=== PATIENT | female | born 1950 | race Caucasian/White ===

== ENCOUNTER → 2017-09-05 | Outpatient (CLI) | payer MEDICARE, OTHER ==
[~2017-09-05] MED LIST: ACET325 PO; ACIDOPHILUS1 EAC2 PO; ALBIPROI INH; ALBU90OI6 INH; AMIT10 PO; AMOCLA875 PO; ATOR20 PO; AUGMENTIN; AZIT250 PO; BELPHEER PO; BENZ100A PO; CEPH500 PO; CHOL10002 PO; CIPR500 PO; CLOP75 PO; CYCL10 PO; Cleocin HCl300 MG PO; Cymbalta30 MG PO; DEXL60CA3 PO; DIAZ5; DIAZ5 PO; DULO30 PO; ESTRADIOL VALERATE; EZET10 PO; FLUT.05NI; FOLGARD TABLET1 EACH PO; GABA300 PO; GUAI600T33 PO; HYDCHLSU PO; HYOS.125 SL; IBUP800 PO; LANS30EC PO; LEVFLO250 PO; LEVO750 PO; LIDO5TP TOP; LISI5 PO; METO25ER PO; METR500 PO; NORT10 PO; OMEGA RED PO; ONDA4 PO; ONDA4ODT MM; ONDA8 PO; OXYACE10; OXYACE5T PO; OXYACE7.5T PO; OXYC10ER PO; OXYC15ER PO; OXYC1TAB11; OXYC1TAB11 PO; OXYC5 PO; PERCOCET PO; PROM25; PROM25 PO; Percocet 10-321 EACH PO; ROSU5 PO; SERT25 PO; SIMV10 PO; SUCR1 PO; SUMA25 PO; SUMA5NI; TESTOSTERONE; UBID100 PO; Vitamin D2000 UNIT PO; Vitamin D400 UNI1 PO; [UNRECOGNIZED DRUG - OTHER]
[2017-09-05 09:48] LABS: Source, Urine Voided
[2017-09-05 11:58] LABS: Bilirubin, Urine Neg (Neg); Blood, Urine Neg (Neg); Glucose Qualitative, Urine Neg (Neg); Ketones, Urine Neg (Neg); Leukocyte Esterase, Urine Neg (Neg); Nitrite, Urine Neg (Neg); Protein, Urine Neg (Neg); Urobilinogen, Urine NORM (Normal)
[2017-09-05 12:09] LABS: Appearance, Urine Clear (Clear); Color, Urine Yellow (P-Yellow)
== END | disposition home or self-care (01) ==
LOC: OLS 09:44
PROVIDERS: Internal Medicine
DX: R30.0 Dysuria (principal)
CPT/HCPCS: 81003

== ENCOUNTER 2017-12-26 15:38 | Emergency (ER) | payer MEDICARE, OTHER ==
[~2017-12-26] VITALS: Ht 160 cm; Wt 54.4 kg
[~2017-12-26 15:38] MED LIST changes: -AZIT250 PO; -BENZ100A PO
[2017-12-26 17:46] LABS: BASOPHILS ABSOLUTE AUTO 0.03 K/mm3 (0.00-0.23); BASOPHILS PERCENT AUTO 0 % (0-2); EOSINOPHILS ABSOLUTE AUTO 0.06 K/mm3 (0.00-0.68); EOSINOPHILS PERCENT AUTO 0 % (0-6); Hematocrit 38.7 % (33.0-51.0); Hemoglobin 12.6 g/dL (11.5-16.0); IMMATURE GRAN ABSOLUTE AUTO 0.08 K/mm3 (0.00-0.10); IMMATURE GRAN PERCENT AUTO 1 % (0-1); LYMPHOCYTES ABSOLUTE AUTO 1.46 K/mm3 (0.84-5.20); LYMPHOCYTES PERCENT AUTO 11 % (21-46); MONOCYTES PERCENT AUTO 6 % (4-13); Mean Corpuscular HGB 31.1 pg (26.0-34.0); Mean Corpuscular HGB Conc 32.6 g/dL (31.5-36.5); Mean Corpuscular Volume 96 fL (80-100); Mean Platelet Volume 9.6 fL (9.1-12.4); NEUTROPHILS ABSOLUTE AUTO 11.14 K/mm3 (1.96-9.15); NEUTROPHILS PERCENT AUTO 82 % (41-73); Platelet Count 306 K/mm3 (150-400); RDW Coefficient Variation 13.7 % (11.7-14.2); RDW Standard Deviation 48.8 fL (35.1-46.3); Red Blood Cell Count 4.05 M/mm3 (3.80-5.20); White Blood Cell Count 13.57 K/mm3 (4.00-11.30)
[2017-12-26 18:06] LABS: Anion Gap 10 mmol/L (6-16); Blood Urea Nitrogen 7 mg/dL (8-24); Bun/Creatinine Ratio 14.8 (12.0-20.0); CO2, Blood 26 mmol/L (21-32); Calcium, Blood 8.8 mg/dL (8.5-10.1); Chloride, Blood 97 mmol/L (98-108); Creatinine, Blood 0.47 mg/dL (0.40-1.00); Glomerular Filtration Rate >60 (60-); Glucose, Blood 112 mg/dL (70-99); Potassium, Blood 4.2 mmol/L (3.5-5.5); Sodium, Blood 133 mmol/L (136-145)
[2017-12-26] MEDS ORDERED: BENZ100A PO (18:29)
[2017-12-26] MEDS ORDERED: AZIT250 PO (18:29)
== END 2017-12-26 18:36 | disposition home or self-care (01) ==
LOC: ER 15:38
PROVIDERS: Physician Assistant
DX: J44.1 Chronic obstructive pulmonary disease with (acute) exacerbation (principal); J32.9 Chronic sinusitis, unspecified; Z88.6 Allergy status to analgesic agent; Z88.8 Allergy status to other drugs, medicaments and biological substances; Z88.1 Allergy status to other antibiotic agents; Z88.5 Allergy status to narcotic agent; Z79.899 Other long term (current) drug therapy; Z79.2 Long term (current) use of antibiotics; F41.9 Anxiety disorder, unspecified; F17.210 Nicotine dependence, cigarettes, uncomplicated
CPT/HCPCS: 36415; 71046; 80048; 85025; 99283

== ENCOUNTER → 2020-01-06 | Outpatient (CLI) | payer MEDICARE, OTHER ==
[~2020-01-06] MED LIST changes: +ALBU90OI INH; +AZIT250 PO; +BENZ100A PO; +CLOBETASOL PRO0.5 GM TOP; +Flonase 0.05% N16 GM; +LETR2.5 PO; +LIDO700A20 TOP; +METO50 PO; +Ondansetron Odt8 MG PO; +Sudogest30 MG PO
[2020-01-06 10:10] LABS: Source, Urine Clean Catch
[2020-01-06 12:14] LABS: Bilirubin, Urine Neg (Neg); Blood, Urine Neg (Neg); Glucose Qualitative, Urine Neg (Neg); Ketones, Urine Neg (Neg); Leukocyte Esterase, Urine Neg (Neg); Nitrite, Urine Neg (Neg); Protein, Urine Neg (Neg); Urobilinogen, Urine 1+ (Normal)
[2020-01-06 12:17] LABS: Appearance, Urine Clear (Clear); Color, Urine Yellow (P-Yellow)
== END | disposition home or self-care (01) ==
LOC: LAB SHORT 10:07 → LAB 10:07
PROVIDERS: Internal Medicine
DX: R30.0 Dysuria (principal)
CPT/HCPCS: 81003

== ENCOUNTER 2020-04-20 15:39 | Emergency (ER) | payer MEDICARE, OTHER ==
[~2020-04-20] VITALS: Ht 160 cm; Wt 52.2 kg
[2020-04-20 16:10] LABS: BASOPHILS ABSOLUTE AUTO 0.05 K/mm3 (0.00-0.23); BASOPHILS PERCENT AUTO 1 % (0-2); EOSINOPHILS ABSOLUTE AUTO 0.13 K/mm3 (0.00-0.68); EOSINOPHILS PERCENT AUTO 2 % (0-6); Hematocrit 41.2 % (33.0-51.0); Hemoglobin 13.6 g/dL (11.5-16.0); IMMATURE GRAN ABSOLUTE AUTO 0.02 K/mm3 (0.00-0.10); IMMATURE GRAN PERCENT AUTO 0 % (0-1); LYMPHOCYTES ABSOLUTE AUTO 1.03 K/mm3 (0.84-5.20); LYMPHOCYTES PERCENT AUTO 19 % (21-46); MONOCYTES ABSOLUTE AUTO 0.18 K/mm3 (0.16-1.47); MONOCYTES PERCENT AUTO 3 % (4-13); Mean Corpuscular HGB 34.4 pg (26.0-34.0); Mean Corpuscular Volume 104 fL (80-100); Mean Platelet Volume 10.4 fL (9.1-12.4); NEUTROPHILS ABSOLUTE AUTO 4.17 K/mm3 (1.96-9.15); NEUTROPHILS PERCENT AUTO 75 % (41-73); NRBC ABSOLUTE 0.03 K/mm3 (0.00-0.02); NRBC Auto 0.5 /100 WBC (0.0-0.2); Platelet Count 218 K/mm3 (150-400); RDW Coefficient Variation 18.4 % (11.7-14.2); RDW Standard Deviation 70.9 fL (35.1-46.3); Red Blood Cell Count 3.95 M/mm3 (3.80-5.20); White Blood Cell Count 5.58 K/mm3 (4.00-11.30)
[2020-04-20 16:30] LABS: Alanine Aminotransfer (ALT/SGP 29 U/L (12-78); Albumin, Blood 2.8 g/dL (3.4-5.0); Albumin/Globulin Ratio 0.7 (0.8-1.8); Alk Phos 199 U/L (50-136); Anion Gap 10 mmol/L (6-16); Aspartate Aminotrans (AST/SGOT 54 U/L (12-37); Bilirubin, Total 0.5 mg/dL (0.1-1.0); Blood Urea Nitrogen 7 mg/dL (8-24); Bun/Creatinine Ratio 11.2 (12.0-20.0); CO2, Blood 23 mmol/L (21-32); Calcium, Blood 9.1 mg/dL (8.5-10.1); Chloride, Blood 105 mmol/L (98-108); Creatinine, Blood 0.63 mg/dL (0.40-1.00); Globulin, Blood 3.9 g/dL (2.2-4.0); Glomerular Filtration Rate >60 (60-); Glucose, Blood 121 mg/dL (70-99); Potassium, Blood 3.3 mmol/L (3.5-5.5); Sodium, Blood 138 mmol/L (136-145); Total Protein, Blood 6.7 g/dL (6.4-8.2)
[2020-04-20 19:59] LABS: Source, Urine Clean Catch
[2020-04-20 20:02] LABS: Appearance, Urine Clear (Clear); Bilirubin, Urine Neg (Neg); Blood, Urine Neg (Neg); Color, Urine Yellow (P-Yellow); Glucose Qualitative, Urine Neg (Neg); Ketones, Urine Neg (Neg); Leukocyte Esterase, Urine Neg (Neg); Nitrite, Urine Neg (Neg); Protein, Urine 1+ (Neg); Urobilinogen, Urine NORM (Normal); pH, Urine 6.5 (5.0-8.0)
[2020-04-20] MEDS ORDERED: AMLO5 PO (20:20)
[2020-04-20] MEDS ORDERED: METTREX2.5 (20:20)
[2020-04-20] MEDS ORDERED: FOLI1 PO (20:20)
[2020-04-20] MEDS ORDERED: LANS30EC PO (20:21)
[2020-04-20] MEDS ORDERED: Vitamin D2000 UNIT PO (20:22)
[2020-04-20] MEDS ORDERED: FLUT.05NI (20:22)
[2020-04-20] MEDS ORDERED: CALCIUM 600 +1 EA11 PO (20:23)
[2020-04-20] MEDS ORDERED: CLOP75 PO (20:23)
[2020-04-20] MEDS ORDERED: PERCOCET 10-321 EAC2 PO (20:23)
[2020-04-20] MEDS ORDERED: Protonix40 MG PO (20:39)
[2020-04-20] MEDS ORDERED: ONDA4ODT MM (20:39)
== END 2020-04-20 20:52 | disposition home or self-care (01) ==
LOC: ER 15:39
PROVIDERS: Physician Assistant
DX: K29.70 Gastritis, unspecified, without bleeding (principal); K21.9 Gastro-esophageal reflux disease without esophagitis; F41.9 Anxiety disorder, unspecified; F17.200 Nicotine dependence, unspecified, uncomplicated; Z88.6 Allergy status to analgesic agent; Z88.8 Allergy status to other drugs, medicaments and biological substances; Z88.1 Allergy status to other antibiotic agents; Z88.4 Allergy status to anesthetic agent; Z88.5 Allergy status to narcotic agent; Z79.02 Long term (current) use of antithrombotics/antiplatelets; Z79.899 Other long term (current) drug therapy
CPT/HCPCS: 36415; 71260; 74177; 80053; 83690; 83735; 84484; 85025; 93005; 93010; 96361; 96374-59; 99284-25; A9270-GY; J2405; J7030; Q9967

== ENCOUNTER 2020-05-14 12:59 | Emergency (ER) | payer MEDICARE, OTHER ==
[~2020-05-14] VITALS: Ht 160 cm; Wt 51.3 kg
[~2020-05-14 12:59] MED LIST changes: +AMLO5 PO; +CALCIUM 600 +1 EA11 PO; +FOLI1 PO; +METTREX2.5; +Protonix40 MG PO
[2020-05-14 14:14] LABS: BASOPHILS ABSOLUTE AUTO 0.03 K/mm3 (0.00-0.23); BASOPHILS PERCENT AUTO 1 % (0-2); EOSINOPHILS ABSOLUTE AUTO 0.11 K/mm3 (0.00-0.68); EOSINOPHILS PERCENT AUTO 2 % (0-6); Hematocrit 39.9 % (33.0-51.0); IMMATURE GRAN ABSOLUTE AUTO 0.02 K/mm3 (0.00-0.10); IMMATURE GRAN PERCENT AUTO 0 % (0-1); LYMPHOCYTES PERCENT AUTO 28 % (21-46); MONOCYTES PERCENT AUTO 6 % (4-13); Mean Corpuscular HGB 35.1 pg (26.0-34.0); Mean Corpuscular HGB Conc 32.6 g/dL (31.5-36.5); Mean Corpuscular Volume 108 fL (80-100); Mean Platelet Volume 12.5 fL (9.1-12.4); NEUTROPHILS ABSOLUTE AUTO 3.14 K/mm3 (1.96-9.15); NEUTROPHILS PERCENT AUTO 63 % (41-73); NRBC ABSOLUTE 0.02 K/mm3 (0.00-0.02); NRBC Auto 0.4 /100 WBC (0.0-0.2); Platelet Count 103 K/mm3 (150-400); RDW Coefficient Variation 19.5 % (11.7-14.2)
[2020-05-14 14:44] LABS: Alanine Aminotransfer (ALT/SGP 52 U/L (12-78); Albumin, Blood 2.6 g/dL (3.4-5.0); Albumin/Globulin Ratio 0.7 (0.8-1.8); Alk Phos 226 U/L (50-136); Anion Gap 14 mmol/L (6-16); Aspartate Aminotrans (AST/SGOT 103 U/L (12-37); Bilirubin, Total 0.9 mg/dL (0.1-1.0); Blood Urea Nitrogen 7 mg/dL (8-24); Bun/Creatinine Ratio 12.5 (12.0-20.0); CO2, Blood 21 mmol/L (21-32); Calcium, Blood 8.9 mg/dL (8.5-10.1); Chloride, Blood 105 mmol/L (98-108); Creatinine, Blood 0.56 mg/dL (0.40-1.00); Globulin, Blood 3.6 g/dL (2.2-4.0); Glomerular Filtration Rate >60 (60-); Glucose, Blood 129 mg/dL (70-99); Potassium, Blood 3.1 mmol/L (3.5-5.5); Sodium, Blood 140 mmol/L (136-145); Total Protein, Blood 6.2 g/dL (6.4-8.2)
[2020-05-14 14:56] LABS: Source, Urine Clean Catch
[2020-05-14 15:00] LABS: Appearance, Urine Cloudy (Clear); Blood, Urine 1+ (Neg); Color, Urine Amber (P-Yellow); Glucose Qualitative, Urine Neg (Neg); Ketones, Urine 1+ (Neg); Leukocyte Esterase, Urine 2+ (Neg); Nitrite, Urine Neg (Neg); Protein, Urine 2+ (Neg); Urobilinogen, Urine 2+ (Normal)
[2020-05-14 15:12] LABS: Bilirubin, Urine 1+ (Neg)
[2020-05-14 15:14] LABS: Bacteria Many /hpf; Squamous Epithelial Cells Mod /hpf (Few)
[2020-05-14] MEDS ORDERED: DIAZ5 PO (16:47)
[2020-05-14] MEDS ORDERED: PROM25 PO (16:48)
[2020-05-14] MEDS ORDERED: FAMO20 PO (16:48)
[2020-05-14] MEDS ORDERED: DOCU100 PO (16:48)
[2020-05-14] MEDS ORDERED: NYSTATIN100000 UN1 SS (16:50)
[2020-05-14] MEDS ORDERED: KEFLEX500 MG PO (17:50)
[2020-05-14] MEDS ORDERED: ONDA4 PO (17:50)
== END 2020-05-14 18:16 | disposition home or self-care (01) ==
LOC: ER 12:59
PROVIDERS: Physician Assistant
DX: N39.0 Urinary tract infection, site not specified (principal); F41.9 Anxiety disorder, unspecified; K21.9 Gastro-esophageal reflux disease without esophagitis; I10 Essential (primary) hypertension; F17.200 Nicotine dependence, unspecified, uncomplicated; Z88.6 Allergy status to analgesic agent; Z88.8 Allergy status to other drugs, medicaments and biological substances; Z88.4 Allergy status to anesthetic agent; Z88.1 Allergy status to other antibiotic agents; Z88.5 Allergy status to narcotic agent; Z79.02 Long term (current) use of antithrombotics/antiplatelets; Z79.899 Other long term (current) drug therapy
CPT/HCPCS: 36415; 80053; 81001; 83690; 85025; 87077; 87086; 87186; 96365; 96375; 99284-25; J0696; J2405; J7030

== ENCOUNTER 2020-05-20 14:08 | Emergency (ER) | payer MEDICARE, OTHER ==
[~2020-05-20] VITALS: Ht 160 cm; Wt 51.3 kg
[~2020-05-20 14:08] MED LIST changes: +DOCU100 PO; +FAMO20 PO; +KEFLEX500 MG PO; +NYSTATIN100000 UN1 SS
[2020-05-20 15:16] LABS: BASOPHILS ABSOLUTE AUTO 0.03 K/mm3 (0.00-0.23); BASOPHILS PERCENT AUTO 1 % (0-2); EOSINOPHILS ABSOLUTE AUTO 0.09 K/mm3 (0.00-0.68); EOSINOPHILS PERCENT AUTO 2 % (0-6); Hematocrit 31.6 % (33.0-51.0); Hemoglobin 10.5 g/dL (11.5-16.0); IMMATURE GRAN ABSOLUTE AUTO 0.03 K/mm3 (0.00-0.10); IMMATURE GRAN PERCENT AUTO 1 % (0-1); LYMPHOCYTES ABSOLUTE AUTO 1.34 K/mm3 (0.84-5.20); LYMPHOCYTES PERCENT AUTO 26 % (21-46); MONOCYTES ABSOLUTE AUTO 0.39 K/mm3 (0.16-1.47); MONOCYTES PERCENT AUTO 8 % (4-13); Mean Corpuscular HGB 36.6 pg (26.0-34.0); Mean Corpuscular HGB Conc 33.2 g/dL (31.5-36.5); Mean Corpuscular Volume 110 fL (80-100); Mean Platelet Volume 12.3 fL (9.1-12.4); NEUTROPHILS ABSOLUTE AUTO 3.34 K/mm3 (1.96-9.15); NEUTROPHILS PERCENT AUTO 64 % (41-73); NRBC ABSOLUTE 0.05 K/mm3 (0.00-0.02); Platelet Count 70 K/mm3 (150-400); RDW Coefficient Variation 18.6 % (11.7-14.2); RDW Standard Deviation 75.7 fL (35.1-46.3); Red Blood Cell Count 2.87 M/mm3 (3.80-5.20); White Blood Cell Count 5.22 K/mm3 (4.00-11.30)
[2020-05-20 15:28] LABS: Source, Urine Clean Catch
[2020-05-20 15:53] LABS: Appearance, Urine Clear (Clear); Bilirubin, Urine Neg (Neg); Blood, Urine Neg (Neg); Color, Urine Yellow (P-Yellow); Glucose Qualitative, Urine Neg (Neg); Ketones, Urine Neg (Neg); Leukocyte Esterase, Urine Neg (Neg); Nitrite, Urine Neg (Neg); Protein, Urine 1+ (Neg); Specific Gravity, Urine 1.015 (1.003-1.022); Urobilinogen, Urine NORM (Normal)
[2020-05-20 16:03] LABS: Alanine Aminotransfer (ALT/SGP 42 U/L (12-78); Albumin, Blood 2.1 g/dL (3.4-5.0); Albumin/Globulin Ratio 0.8 (0.8-1.8); Alk Phos 149 U/L (50-136); Anion Gap 11 mmol/L (6-16); Aspartate Aminotrans (AST/SGOT 70 U/L (12-37); Bilirubin, Total 0.7 mg/dL (0.1-1.0); Blood Urea Nitrogen 6 mg/dL (8-24); Bun/Creatinine Ratio 13.2 (12.0-20.0); CO2, Blood 25 mmol/L (21-32); Calcium, Blood 8.1 mg/dL (8.5-10.1); Chloride, Blood 108 mmol/L (98-108); Creatinine, Blood 0.46 mg/dL (0.40-1.00); Globulin, Blood 2.8 g/dL (2.2-4.0); Glomerular Filtration Rate >60 (60-); Glucose, Blood 94 mg/dL (70-99); Potassium, Blood 2.9 mmol/L (3.5-5.5); Sodium, Blood 144 mmol/L (136-145); Total Protein, Blood 4.9 g/dL (6.4-8.2)
[2020-05-20] MEDS ORDERED: POTA10T PO (17:40)
== END 2020-05-20 19:28 | disposition home or self-care (01) ==
LOC: ER 14:08
PROVIDERS: Emergency Medicine
DX: K44.9 Diaphragmatic hernia without obstruction or gangrene (principal); E87.6 Hypokalemia; E86.0 Dehydration; F41.9 Anxiety disorder, unspecified; K21.9 Gastro-esophageal reflux disease without esophagitis; J44.9 Chronic obstructive pulmonary disease, unspecified; Z88.5 Allergy status to narcotic agent; Z88.6 Allergy status to analgesic agent; Z88.4 Allergy status to anesthetic agent; Z88.8 Allergy status to other drugs, medicaments and biological substances; Z79.899 Other long term (current) drug therapy; F17.210 Nicotine dependence, cigarettes, uncomplicated
CPT/HCPCS: 74177; 80053; 83690; 85025; 96361; 96365-59; 96366; 96375-59; 99285-25; J2765; J3010; J3480; J7030; Q9967

== ENCOUNTER → 2020-06-08 | Outpatient (CLI) | payer MEDICARE, OTHER ==
[~2020-06-08] MED LIST changes: -AMLO5 PO; +AMLODIPINE BES2.5 MG PO; +DILAUDID 00.5 MG/0.2 PO; +Klor-Con 1010 MEQ PO; +LANSOPRAZOLE30 MG PO; +LORAZEPAM0.5 MG PO; +METHOTREXA25 MG/1 M8; +NIFE30ER PO; +ONDA4ODT SL; +PLAVIX75 MG PO; +POTA10T PO; +RISPERIDONE0.25 MG PO
[2020-06-08 12:04] LABS: BASOPHILS ABSOLUTE AUTO 0.01 K/mm3 (0.00-0.23); BASOPHILS PERCENT AUTO 0 % (0-2); EOSINOPHILS ABSOLUTE AUTO 0.07 K/mm3 (0.00-0.68); EOSINOPHILS PERCENT AUTO 2 % (0-6); Hematocrit 30.5 % (33.0-51.0); Hemoglobin 9.9 g/dL (11.5-16.0); IMMATURE GRAN ABSOLUTE AUTO 0.02 K/mm3 (0.00-0.10); IMMATURE GRAN PERCENT AUTO 1 % (0-1); LYMPHOCYTES ABSOLUTE AUTO 1.45 K/mm3 (0.84-5.20); LYMPHOCYTES PERCENT AUTO 34 % (21-46); MONOCYTES ABSOLUTE AUTO 0.21 K/mm3 (0.16-1.47); MONOCYTES PERCENT AUTO 5 % (4-13); Mean Corpuscular HGB 36.5 pg (26.0-34.0); Mean Corpuscular HGB Conc 32.5 g/dL (31.5-36.5); Mean Corpuscular Volume 113 fL (80-100); Mean Platelet Volume 11.5 fL (9.1-12.4); NEUTROPHILS ABSOLUTE AUTO 2.45 K/mm3 (1.96-9.15); NEUTROPHILS PERCENT AUTO 58 % (41-73); Platelet Count 148 K/mm3 (150-400); RDW Coefficient Variation 18.8 % (11.7-14.2); Red Blood Cell Count 2.71 M/mm3 (3.80-5.20); White Blood Cell Count 4.21 K/mm3 (4.00-11.30)
[2020-06-08 12:17] LABS: Anion Gap 10 mmol/L (6-16); Blood Urea Nitrogen 8 mg/dL (8-24); Bun/Creatinine Ratio 14.7 (12.0-20.0); CO2, Blood 23 mmol/L (21-32); Chloride, Blood 107 mmol/L (98-108); Creatinine, Blood 0.54 mg/dL (0.40-1.00); Glomerular Filtration Rate >60 (60-); Glucose, Blood 125 mg/dL (70-99); Potassium, Blood 3.4 mmol/L (3.5-5.5); Sodium, Blood 140 mmol/L (136-145)
== END ==
LOC: LAB SHORT 11:20 → LAB 11:20
PROVIDERS: Internal Medicine
DX: L89.102 Pressure ulcer of unspecified part of back, stage 2 (principal); R13.10 Dysphagia, unspecified
CPT/HCPCS: 80048; 85025

== ENCOUNTER 2020-06-21 15:47 | Inpatient (IN) | payer MEDICARE ==
[~2020-06-21] VITALS: Ht 160 cm; Wt 56.8 kg
[~2020-06-21 15:47] MED LIST changes: -AMLODIPINE BES2.5 MG PO; -DILAUDID 00.5 MG/0.2 PO; -Klor-Con 1010 MEQ PO; -LANSOPRAZOLE30 MG PO; -LORAZEPAM0.5 MG PO; -METHOTREXA25 MG/1 M8; -NIFE30ER PO; -NYSTATIN100000 UN1 SS; -ONDA4ODT SL; -PLAVIX75 MG PO; -RISPERIDONE0.25 MG PO
[2020-06-21 16:46] LABS: BASOPHILS ABSOLUTE AUTO 0.01 K/mm3 (0.00-0.23); BASOPHILS PERCENT AUTO 0 % (0-2); EOSINOPHILS ABSOLUTE AUTO 0.01 K/mm3 (0.00-0.68); EOSINOPHILS PERCENT AUTO 0 % (0-6); Hematocrit 29.5 % (33.0-51.0); Hemoglobin 9.7 g/dL (11.5-16.0); IMMATURE GRAN ABSOLUTE AUTO 0.04 K/mm3 (0.00-0.10); IMMATURE GRAN PERCENT AUTO 1 % (0-1); LYMPHOCYTES ABSOLUTE AUTO 0.93 K/mm3 (0.84-5.20); LYMPHOCYTES PERCENT AUTO 14 % (21-46); MONOCYTES ABSOLUTE AUTO 0.64 K/mm3 (0.16-1.47); MONOCYTES PERCENT AUTO 10 % (4-13); Mean Corpuscular HGB 37.3 pg (26.0-34.0); Mean Corpuscular HGB Conc 32.9 g/dL (31.5-36.5); Mean Corpuscular Volume 114 fL (80-100); Mean Platelet Volume 11.3 fL (9.1-12.4); NEUTROPHILS ABSOLUTE AUTO 4.82 K/mm3 (1.96-9.15); NEUTROPHILS PERCENT AUTO 75 % (41-73); NRBC ABSOLUTE 0.03 K/mm3 (0.00-0.02); NRBC Auto 0.5 /100 WBC (0.0-0.2); Platelet Count 169 K/mm3 (150-400); RDW Coefficient Variation 17.3 % (11.7-14.2); RDW Standard Deviation 72.1 fL (35.1-46.3); White Blood Cell Count 6.45 K/mm3 (4.00-11.30)
[2020-06-21 16:56] LABS: Alanine Aminotransfer (ALT/SGP 65 U/L (12-78); Albumin, Blood 2.3 g/dL (3.4-5.0); Albumin/Globulin Ratio 0.7 (0.8-1.8); Alk Phos 150 U/L (50-136); Anion Gap 9 mmol/L (6-16); Aspartate Aminotrans (AST/SGOT 141 U/L (12-37); Bilirubin, Total 0.9 mg/dL (0.1-1.0); Blood Urea Nitrogen 8 mg/dL (8-24); Bun/Creatinine Ratio 22.9 (12.0-20.0); CO2, Blood 25 mmol/L (21-32); Calcium, Blood 8.4 mg/dL (8.5-10.1); Chloride, Blood 109 mmol/L (98-108); Creatinine, Blood 0.35 mg/dL (0.40-1.00); Globulin, Blood 3.2 g/dL (2.2-4.0); Glomerular Filtration Rate >60 (60-); Glucose, Blood 132 mg/dL (70-99); Potassium, Blood 3.4 mmol/L (3.5-5.5); Sodium, Blood 143 mmol/L (136-145); Total Protein, Blood 5.5 g/dL (6.4-8.2)
[2020-06-21 17:03] LABS: Source, Urine Catheter
[2020-06-21 17:12] LABS: Appearance, Urine Clear (Clear); Blood, Urine 1+ (Neg); Color, Urine Amber (P-Yellow); Glucose Qualitative, Urine Neg (Neg); Ketones, Urine 4+ (Neg); Leukocyte Esterase, Urine 1+ (Neg); Nitrite, Urine Neg (Neg); Protein, Urine 1+ (Neg); Urobilinogen, Urine 2+ (Normal)
[2020-06-21 17:19] LABS: Bilirubin, Urine 1+ (Neg)
[2020-06-21 17:21] LABS: Bacteria Mod /hpf; White Blood Cells, Urine 0-2 /hpf (0-5)
[2020-06-21 17:22] LABS: Mucus Light (0-Heavy); Squamous Epithelial Cells Mod /hpf (Few)
[2020-06-21 18:00] LABS: Magnesium, Blood 1.7 mg/dL (1.6-2.4)
[2020-06-21] MEDS ORDERED: AMLODIPINE BES2.5 MG PO (20:44)
[2020-06-21] MEDS ORDERED: RISPERIDONE0.25 MG PO (20:46)
[2020-06-21] MEDS ORDERED: FOLI1 PO (20:47)
[2020-06-21] MEDS ORDERED: METHOTREXA25 MG/1 M8 (20:49)
[2020-06-21] MEDS ORDERED: PLAVIX75 MG PO (20:51)
[2020-06-21] MEDS ORDERED: NIFE30ER PO (20:51)
[2020-06-21] MEDS ORDERED: Percocet 10-321 EACH PO (21:36)
[2020-06-21] MEDS ORDERED: PROM25 PO (21:36)
[2020-06-21] MEDS ORDERED: NYSTATIN100000 UN1 SS (21:37)
[2020-06-21] MEDS ORDERED: LANSOPRAZOLE30 MG PO (21:37)
[2020-06-21] MEDS ORDERED: ONDA4ODT SL (21:38)
[2020-06-21] MEDS ORDERED: Klor-Con 1010 MEQ PO (21:39)
[2020-06-21] MEDS ORDERED: DILAUDID 00.5 MG/0.2 PO (21:39)
[2020-06-21] MEDS ORDERED: LORAZEPAM0.5 MG PO (21:41)
[2020-06-21 21:54] LABS: Percent Saturation 46.5 % (15.0-50.0)
--- NOTE | 2020-06-22 05:40 | NUR ---
RETREAD MOLD OPERATOR SUMMARY ADMITTED PT FROM ED. PT A&OX4, ABLE TO MAKE NEEDS KNOWN. PLEASANT AND COOPERATIVE TO CARE. PT HAS GENERALIZED WEAKNESS, 2 PERSON MAX ASSIST. PT C/O GENERALIZED BODY PAIN, MEDICATED PER EMAR. PT TOLERATED MEDICATIONS ONE PILL AT A TIME. PT ALSO MEDICATED FOR N/V X1 THIS SHIFT. PT HAS A PRESSURE WOUND ON COCCYX AREA. AA IS COVERED WITH MEPILEX. NO C/O CP, SOB. CALM AND RESTED IN BED AT THIS TIME. BED AT LOWEST POSITION. CALL LIGHT WITHIN REACH.
[2020-06-22 05:57] LABS: BASOPHILS PERCENT AUTO 0 % (0-2); EOSINOPHILS ABSOLUTE AUTO 0.02 K/mm3 (0.00-0.68); EOSINOPHILS PERCENT AUTO 0 % (0-6); Hematocrit 30.5 % (33.0-51.0); Hemoglobin 9.8 g/dL (11.5-16.0); IMMATURE GRAN ABSOLUTE AUTO 0.05 K/mm3 (0.00-0.10); IMMATURE GRAN PERCENT AUTO 1 % (0-1); LYMPHOCYTES ABSOLUTE AUTO 1.01 K/mm3 (0.84-5.20); LYMPHOCYTES PERCENT AUTO 11 % (21-46); MONOCYTES ABSOLUTE AUTO 0.67 K/mm3 (0.16-1.47); MONOCYTES PERCENT AUTO 7 % (4-13); Mean Corpuscular HGB 37.1 pg (26.0-34.0); Mean Corpuscular HGB Conc 32.1 g/dL (31.5-36.5); Mean Corpuscular Volume 116 fL (80-100); Mean Platelet Volume 11.2 fL (9.1-12.4); NEUTROPHILS ABSOLUTE AUTO 7.62 K/mm3 (1.96-9.15); NEUTROPHILS PERCENT AUTO 81 % (41-73); NRBC ABSOLUTE 0.02 K/mm3 (0.00-0.02); NRBC Auto 0.2 /100 WBC (0.0-0.2); Platelet Count 159 K/mm3 (150-400); RDW Coefficient Variation 17.5 % (11.7-14.2); RDW Standard Deviation 74.5 fL (35.1-46.3); Red Blood Cell Count 2.64 M/mm3 (3.80-5.20); White Blood Cell Count 9.37 K/mm3 (4.00-11.30)
[2020-06-22 06:31] LABS: Anion Gap 11 mmol/L (6-16); Blood Urea Nitrogen 7 mg/dL (8-24); Bun/Creatinine Ratio 18.9 (12.0-20.0); CO2, Blood 23 mmol/L (21-32); Calcium, Blood 8.2 mg/dL (8.5-10.1); Chloride, Blood 107 mmol/L (98-108); Creatinine, Blood 0.37 mg/dL (0.40-1.00); Glomerular Filtration Rate >60 (60-); Glucose, Blood 131 mg/dL (70-99); Potassium, Blood 3.5 mmol/L (3.5-5.5); Sodium, Blood 141 mmol/L (136-145)
--- NOTE | 2020-06-22 15:46 | NUR ---
Supportive visit this afternoon. Dr Yu just coming out of Pt's room. Reviewed case and discussed plan of care. Plan for ST to evaluate with possible modified barrium. Pt resting in bed and is A&OX3. Pt reports 10/10 pain in her lower back and back of both legs. Pt appears frail and lethargic. Pt denies dyspnea at this time. Engaged in therapeutic listening as Pt reports being unsure if g tube placement is what she wants. Pt is more focused on her pain at this time. Pt agreeable for continued visits. Reviewed home medication list, discussed case with Bedside RN Jaylan, Dr Ibarra and discussed case. Dr Ibarra recently placed order for higher dose of Dilaudid and would like to assess effectiveness of new order before ordering home medication of oxycodone. Palliative Care will F/U for symtpom management and supportive visits.
--- NOTE | 2020-06-22 16:41 | NUR ---
PT IS A/OX3, PLEASANT AND COOPERATIVE, VERY WEAK/LETHARGIC AND DUSKY IN COLOR, PT APPEARS TO BE BREATHING EASILY ON RA AT THIS TIME, THE PT HAS CONTINUOS PAIN ALL OVER PTS SKIN APPEARS MODELING LOOKING, PT WAS SEEN BY THE DIATICAN AND THEN FOR CONSULTAION, PLAN IS TO HAVE BARIUM SWALLOW IN THE AM TO SEE IF THE PATIENT CAN SWALLOW SAFELY, THE PT IS RECIEVING IV CLINIMIX AND LIPIDS AT THIS TIME TO HELP SUSTAIN NUTRITION, PTS HAS BEEN AT THE BEDSIDE T/O THE DAY, CALL LIGHT IN REACH, WILL CONTINUE TO MONITOR AND ASSESS FOR CHANGES
--- NOTE | 2020-06-22 17:58 | NUR ---
Spiritual care note: Aimee appears very ill. She is frail, weak, and tired. Worried spouse at bedside. She admitted she is tired of hurting. Prayer was appreciaited and rapport established. Asked palliative care RN to follow closely. I will remain available.
--- NOTE | 2020-06-23 03:52 | NUR ---
OUTSIDE SALESPERSON SUMMARY PT A/OX3, ABLE TO MAKE NEEDS KNOWN. PLEASANT AND COOPERATIVE TO CARE. PT IS VERY WEAK, 2 PERSON ASSIST, DUSKY IN COLOR. MEDICATED FOR GENERALIZED BODY PAIN PER EMAR. PT ALSO MEDICATED FOR N/V PER EMAR. RESP ARE EVEN AND UNLABORED IN ROOM AIR. NO C/O CP, NO SOB. CONT ON CLINIMIX FOR NUTRITION. BED AT LOWEST POSITION, CALL LIGHT WITHIN REACH. PT CALM AND RESTED IN BED AT THIS TIME. WILL CONT TO MONITOR FOR CHANGES.
[2020-06-23 05:30] LABS: BASOPHILS ABSOLUTE AUTO 0.01 K/mm3 (0.00-0.23); BASOPHILS PERCENT AUTO 0 % (0-2); EOSINOPHILS ABSOLUTE AUTO 0.03 K/mm3 (0.00-0.68); EOSINOPHILS PERCENT AUTO 0 % (0-6); Hematocrit 27.4 % (33.0-51.0); Hemoglobin 8.8 g/dL (11.5-16.0); IMMATURE GRAN ABSOLUTE AUTO 0.06 K/mm3 (0.00-0.10); IMMATURE GRAN PERCENT AUTO 1 % (0-1); LYMPHOCYTES ABSOLUTE AUTO 0.95 K/mm3 (0.84-5.20); LYMPHOCYTES PERCENT AUTO 12 % (21-46); MONOCYTES PERCENT AUTO 9 % (4-13); Mean Corpuscular HGB 36.5 pg (26.0-34.0); Mean Corpuscular HGB Conc 32.1 g/dL (31.5-36.5); Mean Corpuscular Volume 114 fL (80-100); Mean Platelet Volume 11.2 fL (9.1-12.4); NEUTROPHILS ABSOLUTE AUTO 6.43 K/mm3 (1.96-9.15); NEUTROPHILS PERCENT AUTO 79 % (41-73); NRBC ABSOLUTE 0.05 K/mm3 (0.00-0.02); NRBC Auto 0.6 /100 WBC (0.0-0.2); Platelet Count 129 K/mm3 (150-400); RDW Coefficient Variation 16.7 % (11.7-14.2); RDW Standard Deviation 70.1 fL (35.1-46.3); Red Blood Cell Count 2.41 M/mm3 (3.80-5.20); White Blood Cell Count 8.18 K/mm3 (4.00-11.30)
[2020-06-23 06:11] LABS: Albumin, Blood 1.9 g/dL (3.4-5.0); Anion Gap 6 mmol/L (6-16); Blood Urea Nitrogen 15 mg/dL (8-24); Bun/Creatinine Ratio 42.6 (12.0-20.0); CO2, Blood 27 mmol/L (21-32); Calcium, Blood 8.4 mg/dL (8.5-10.1); Chloride, Blood 104 mmol/L (98-108); Creatinine, Blood 0.35 mg/dL (0.40-1.00); Glomerular Filtration Rate >60 (60-); Glucose, Blood 124 mg/dL (70-99); Phosphorus, Blood 2.5 mg/dL (2.5-4.9); Potassium, Blood 3.8 mmol/L (3.5-5.5); Sodium, Blood 137 mmol/L (136-145)
--- NOTE | 2020-06-23 17:51 | NUR ---
PT ORIENTED TO SITUATION AND SELF BUT REMAINS SLEEPY. PT IS MAX ASSIST WITH BED ANGELES WHEN ABLE TO TOLERATE. URIN DARK MARQUES IN COLOR. L/AC RUNNING AND WNL. PT RECEIVED ORAL CARE PER NEW NPO ORDERS AND WOUND DRESSING CHANGED. STAFF WILL CONTINUE TO MONITOR FOR CHANGES.
[2020-06-24 04:52] LABS: BASOPHILS ABSOLUTE AUTO 0.01 K/mm3 (0.00-0.23); BASOPHILS PERCENT AUTO 0 % (0-2); EOSINOPHILS ABSOLUTE AUTO 0.02 K/mm3 (0.00-0.68); EOSINOPHILS PERCENT AUTO 0 % (0-6); Hematocrit 26.8 % (33.0-51.0); Hemoglobin 8.8 g/dL (11.5-16.0); IMMATURE GRAN ABSOLUTE AUTO 0.07 K/mm3 (0.00-0.10); IMMATURE GRAN PERCENT AUTO 1 % (0-1); LYMPHOCYTES ABSOLUTE AUTO 0.93 K/mm3 (0.84-5.20); LYMPHOCYTES PERCENT AUTO 9 % (21-46); MONOCYTES ABSOLUTE AUTO 0.71 K/mm3 (0.16-1.47); MONOCYTES PERCENT AUTO 7 % (4-13); Mean Corpuscular HGB Conc 32.8 g/dL (31.5-36.5); Mean Corpuscular Volume 113 fL (80-100); Mean Platelet Volume 11.7 fL (9.1-12.4); NEUTROPHILS PERCENT AUTO 84 % (41-73); NRBC ABSOLUTE 0.07 K/mm3 (0.00-0.02); NRBC Auto 0.7 /100 WBC (0.0-0.2); Platelet Count 128 K/mm3 (150-400); RDW Coefficient Variation 15.9 % (11.7-14.2); RDW Standard Deviation 65.9 fL (35.1-46.3); Red Blood Cell Count 2.38 M/mm3 (3.80-5.20); White Blood Cell Count 10.64 K/mm3 (4.00-11.30)
[2020-06-24 05:24] LABS: Alanine Aminotransfer (ALT/SGP 31 U/L (12-78); Albumin/Globulin Ratio 0.6 (0.8-1.8); Alk Phos 105 U/L (50-136); Anion Gap 9 mmol/L (6-16); Aspartate Aminotrans (AST/SGOT 27 U/L (12-37); Bilirubin, Total 0.6 mg/dL (0.1-1.0); Blood Urea Nitrogen 17 mg/dL (8-24); CO2, Blood 24 mmol/L (21-32); Calcium, Blood 8.7 mg/dL (8.5-10.1); Chloride, Blood 99 mmol/L (98-108); Creatinine, Blood 0.35 mg/dL (0.40-1.00); Globulin, Blood 3.2 g/dL (2.2-4.0); Glomerular Filtration Rate >60 (60-); Glucose, Blood 120 mg/dL (70-99); Magnesium, Blood 1.9 mg/dL (1.6-2.4); Phosphorus, Blood 2.9 mg/dL (2.5-4.9); Sodium, Blood 132 mmol/L (136-145); Total Protein, Blood 5.2 g/dL (6.4-8.2)
--- NOTE | 2020-06-24 06:33 | NUR ---
SHIFT SUMMARY PT IS A 69 Y/O FEMALE, ADMITTED FOR DYSPHAGIA AND INCREASED WEAKNESS. SHE IS A&O X 2, LETHARGIC, WAKING TO VOICE, OCCASIONALLY CRYING OUT BEFORE FALLING BACK ASLEEP. PT IS ON BEDREST. NPO FOR AN EGD PROCEDURE TODAY. PT C/O GENERALIZED PAIN, WAS MEDICATED TWICE WITH PRN IV DILAUDID. PT WAS ALSO MEDICATED ONCE FOR NAUSEA WITH PRN ZOFRAN. NO C/O SOB. INTERMITTENT SUCTION USED, PT REFUSED ORAL CARE. PT HEART RATE ELEVATED IN THE 100-120S. ALL OTHER VITAL SIGNS STABLE. NO OTHER ACUTE CHANGES IN PT CONDITION NOTED DURING THE NIGHT. WILL CONTINUE TO MONITOR AND TREAT PER EMAR UNTIL HAND OFF TO DAY SHIFT RN.
[2020-06-24 13:21] LABS: Influenza A, PCR Negative (NEGATIVE); Influenza B, PCR Negative (NEGATIVE); Resp Syncytial Virus, PCR Negative (NEGATIVE); SARS-Cov-2 (COVID-19) PCR, MMC Negative (NEGATIVE)
--- NOTE | 2020-06-24 16:32 | NUR ---
PT TRANSFERED TO [facility] VIA GURNY FROM FLOOR. History, Chart, Medications and Allergies reviewed before start of procedure. Lungs clear T/O to Auscultation. Patient confirms NPO status and agrees with scheduled surgery. Pre-Op teaching done. Pt verbalizes understanding.
--- NOTE | 2020-06-24 17:08 | NUR ---
06/24/20 1708 KACEY CAMPOS History, Chart, Medications and Allergies reviewed before start of procedure. O2 VIA N/C INTACT THROUGHOUT SEDATION/PROCEDURE. 3-LEAD EKG REVIEWED WITH PHYSICIAN PRIOR TO START OF PROCEDURE. MONITOR INTACT WITH CONTINUOUS PULSE OXIMETRY AND INTERMITTENT BP. MAC WITH DR. CARRANZA.
--- NOTE | 2020-06-24 18:16 | NUR ---
PT BACK FROM SURGURY, RESTING IN BED WITH FAMILY AT HER SIDE. PT MAKES NO C/O OF PAIN AT THIS MOMENT, IV SITE WNL AND RUNNING, DOES NOT AMBULATE AND USES DEPENDS. STAFF WILL CONT. TO MONITOR FOR CHANGES AND NEW DIET ORDERS AFTER EDG.
--- NOTE | 2020-06-25 04:39 | NUR ---
FORM GRADER SUMMARY PT REMAINS LETHARGIC AND ORIENTED TO SELF AND FAMILY. DIFFICULTY WITH FOLLOWING DIRECTIONS. APPEARED TO SLEEP MOST OF SHIFT WITH C/O PAIN, MEDICATED PER EMAR. ORAL CARE Q4 AND PRN. DENIES SOB. NO ACUTE CHANGES AT THIS TIME. BED IN LOWEST POSITION WITH CALL LIGHT IN REACH. WILL CONTINUE TO MONITOR AND REPORT TO ONCOMING RN.
--- NOTE | 2020-06-25 10:20 | NUR ---
Met with Aimee and her dtr, Serina, in her room this morning. Aimee is uncomfortable, moaning and crying out in pain at times. She reports her pain is in her left leg, right abdomen and back. Her pain appears to wax and wane. Her dtr, Serina, is tearful and very concerned for her mother. She states that her mother developed sepsis after having a UTI in 2017 and spent time at [facility] and was transferred to a facility [facility] for continued care. Serina states that since 2017 her mom has not been the same. She is upset that workups so far have not determined a clear diagnosis. Aimee has had a 30 pound wt loss over the past couple months and has difficulty swallowing. She had an EGD done yesterday and biopsies were taken and are pending at this time. Serina is asking to have a family meeting with her siblings and Aimee's Jeff. Serina will contact her family members and this senior copywriter will contact the screening station to arrange for family to attend the meeting.
--- NOTE | 2020-06-25 13:17 | NUR ---
ECHOCARDIOGRAM COMPLETED
--- NOTE | 2020-06-25 14:20 | NUR ---
Lengthy family meeting this afternoon in [place]'s room. Dr. Ibarra, Jeff (pt's spouse), children Dahlia Cohen, Robert, Karen, Robert's and this adjusto writer operator are present. Family members voice concern over pt's current condition, physical decline, and lack of definitive diagnosis for her symptoms. Dr. Ibarra explained Aimee's current condition, testing that has already taken place, and further testing that will take place. Dr. Ibarra also discussed different paths for different goals of care. Full treatment and workup vs. focusing on comfort. Dr. Ibarra explained the fine line for controlling pain that allows her to be comfortable and to participate in therapies and that doesn't make her too sedated. Discussed that Aimee's recovery if she is able to have some recovery would be a very long road. She is quite deconditioned. Discussed with them when to draw the line between continuing to fight for a recovery and the possibility of decreased quality of life and suffering. Discussed option of SNF to which family states that they do not want her going to [facility]. They are hesitant re: SNF due to current covid restrictions and lack of being able to visit Aimee at the SNF. Several family members verbalize how difficult this process of Aimee's physical decline has been to witness. Family requested time to speak amongst themselves after the meeting with Dr. Ibarra and this adjusto writer operator present to determine what type of care that they would like to pursue. Family given time to discuss options with Aimee present. Robert stepped out of Aimee's room after family had a chance to talk. He states that they are all on the same page and that they would like to pursue full treatments and workup at this time. There is tension between some of the family members which lead to Jeff leaving the room upset. Some family members report that there has been some difficult family dynamics present for years. Emotional support provided. Once family members all left, this adjusto writer operator was able to speak with Aimee alone. She reports she wants to continue to fight and have more testing done. Her goal is to get better and be able to go home with her family. She reports that the stress from family members not getting along "sucks." Emotional support given to Aimee. Aimee's color is pale, she has some purple discoloration to her left foot and right toes. She has edema to her bilateral arms. She doesn't currently complain of pain. Aimee appears much more comfortable this afternoon after receiving IV toradol earlier today. Aimee's IV was noted to be leaking after the family meeting. Will request a powerglide placement for a more usp IV access. PC will continue follow. Will need to address code status and filling out an AD/POLST with family. For now Aimee is a full code with full treatment. Dr. Ibarra update after the meeting. Updated her on the plan to continue with full treatment at this time.
--- NOTE | 2020-06-25 18:41 | NUR ---
PT ALERT AND ORIENTED AND RESTING IN BED. NPO TO CONTINUE, ORAL CARE COMPLETE AND WATER ON SWAB PROVIDED FOR MOISTURE. PT REQUESTING FLUIDS AND WILL RELAY TO SUPERVISOR CUTTING AND BONING. PAIN MANAGED VIA IV MEDS. POWER GLIDE RUNNING AND WNL. FAMILY AT BEDSIDE TODAY PROVIDING RELIEFE. PT DOES NOT AMBULATE AND REQUIRES CHANGE IN POSITION OFTEN, FAVORS HER SIDES. STAFF WILL CONTINUE TO MONITOR FOR CHANGES.
[2020-06-26 02:32] LABS: BASOPHILS ABSOLUTE AUTO 0.01 K/mm3 (0.00-0.23); BASOPHILS PERCENT AUTO 0 % (0-2); EOSINOPHILS ABSOLUTE AUTO 0.11 K/mm3 (0.00-0.68); EOSINOPHILS PERCENT AUTO 2 % (0-6); Hematocrit 22.7 % (33.0-51.0); Hemoglobin 7.2 g/dL (11.5-16.0); IMMATURE GRAN ABSOLUTE AUTO 0.03 K/mm3 (0.00-0.10); IMMATURE GRAN PERCENT AUTO 1 % (0-1); LYMPHOCYTES PERCENT AUTO 13 % (21-46); MONOCYTES ABSOLUTE AUTO 0.54 K/mm3 (0.16-1.47); MONOCYTES PERCENT AUTO 9 % (4-13); Mean Corpuscular HGB 35.6 pg (26.0-34.0); Mean Corpuscular HGB Conc 31.7 g/dL (31.5-36.5); Mean Corpuscular Volume 112 fL (80-100); Mean Platelet Volume 11.5 fL (9.1-12.4); NEUTROPHILS PERCENT AUTO 75 % (41-73); NRBC ABSOLUTE 0.08 K/mm3 (0.00-0.02); NRBC Auto 1.3 /100 WBC (0.0-0.2); Platelet Count 132 K/mm3 (150-400); RDW Coefficient Variation 15.6 % (11.7-14.2); Red Blood Cell Count 2.02 M/mm3 (3.80-5.20); White Blood Cell Count 5.99 K/mm3 (4.00-11.30)
[2020-06-26 02:42] LABS: Albumin, Blood 1.7 g/dL (3.4-5.0); Anion Gap 5 mmol/L (6-16); Blood Urea Nitrogen 16 mg/dL (8-24); Bun/Creatinine Ratio 41.2 (12.0-20.0); CO2, Blood 28 mmol/L (21-32); Chloride, Blood 101 mmol/L (98-108); Creatinine, Blood 0.39 mg/dL (0.40-1.00); Glomerular Filtration Rate >60 (60-); Glucose, Blood 92 mg/dL (70-99); Magnesium, Blood 2.1 mg/dL (1.6-2.4); Phosphorus, Blood 3.3 mg/dL (2.5-4.9); Sodium, Blood 134 mmol/L (136-145)
--- NOTE | 2020-06-26 06:11 | NUR ---
AUTOMATIC LATHE OPERATOR PROVIDER CONTACT RECENT HGB OF 7.2 DOWN FROM PREVIOUS OF 8.8. PER AUTOMATIC LATHE OPERATOR PHYSICIAN, STAT PTT AND HGB. STOP HEPARIN INFUSION FOR NOW.
[2020-06-26 06:23] LABS: Hemoglobin 7.2 g/dL (11.5-16.0)
--- NOTE | 2020-06-26 06:38 | NUR ---
NEWS BROADCASTER SUMMARY PT CONTINUES TO BE LETHARGIC WITH NONSENSICAL SPEECH AT TIMES. C/O SEVERE PAIN T/O BACK, NECK, AND LEGS. MEDICATED PER EMAR. REPOSITIONING AND ORAL CARE Q2 AND NEEDED. HEPARIN INFUSION STARTED AT BEGINNING OF SHIFT BUT CURRENTLY ON STANDBY, PLEASE SEE PREVIOUS NOTES. CURRENTLY ON 2L O2 VIA NC D/T SHALLOW RESPIRATIONS, SATS HAVE IMPROVED TO 92. BED IN LOWEST POSITION WITH CALL LIGHT IN REACH. WILL CONTINUE TO MONITOR AND REPORT TO ONCOMING RN.
[2020-06-26 11:53] LABS: Hematocrit 21.1 % (33.0-51.0); Hemoglobin 6.8 g/dL (11.5-16.0)
[2020-06-26 12:33] LABS: Percent Saturation 12.5 % (15.0-50.0)
[2020-06-26 15:44] LABS: Hematocrit 21.9 % (33.0-51.0)
--- NOTE | 2020-06-26 15:55 | NUR ---
TRANSFER TO ICU REPORT GIVEN TO ISAEL RN AND PT THEN TRANSPORTED VIA BED TO ICU 2 BY RIRI CABELLO AND MERCY RN. PT TRANSPORTED WITH CLINIMIX AND LIPIDS RUNNING.
--- NOTE | 2020-06-26 16:00 | NUR ---
PT TRANSFERRED FROM MEDICAL FLOOR. REPORT RECIEVED FROM JUDITH RN. DR PETERS CAME WITH OT AND STATED THAT SHE WAS GOING TO RESTART HEPARIN GTT WITH LOWER PARAMETERS. SHE STATED THAT SHE CALLED DR NAVARRO AND HE SAID HE WOULD BE HERE THIS EVENING TO DO PROCEDURE. HEPARIN GTT TO RESTART ONCE PT AVAILABLE. PICC NURSES AT BEDSIDE AT THIS TIME PLACING LINE DUE TO ONLY ACCESS BEING POWERGLIDE WITH SEVERAL MEDS NEEDING TO RUN. VSS AT THIS TIME.
--- NOTE | 2020-06-26 16:49 | NUR ---
PT'S AT BEDSIDE AND AWARE OF PLAN. NO ACUTE NEEDS AT THIS TIME.
--- NOTE | 2020-06-26 18:22 | NUR ---
SHIFT SUMMARY: PT'S FAMILY AT BEDSIDE. DR NAVARRO CAME IN TO SEE HER AND SPOKE TO HER ABOUT PROCEDURE FOR THROMBECTOMY AND IVC FILTER. PLAN IS TO BE TAKEN TO PROCEDURE LATER TONIGHT. 1 UNIT PRBCS RUNNING, HEPARIN GTT RUNNING, AND PPN RUNNING AT SLOWER RATE TO PREVENT OVERLOAD, ALL THROUGH SEPERATE PORTS OF PICC LINE. MEDICATED FOR PAIN X1 FROM THIS RN. NO FURTHER NEEDS AT THIS TIME.
--- NOTE | 2020-06-26 18:40 | NUR ---
PT TAKEN TO DEVELOPING MACHINE OPERATOR BY [facility]ART CENTER STAFF AT THIS TIME. FAMILY FOLLOWING TO WAITING ROOM.
--- NOTE | 2020-06-26 19:15 | NUR ---
REPORT FROM ISAEL CABELLO, PT CURRENTLY IN MASONRY CONTRACTOR.
[2020-06-26 21:30] LABS: Hematocrit 25.4 % (33.0-51.0); Hemoglobin 8.4 g/dL (11.5-16.0)
[2020-06-26 21:44] LABS: Source, Urine Catheter
[2020-06-26 21:52] LABS: Bilirubin, Urine Neg (Neg); Blood, Urine 1+ (Neg); Glucose Qualitative, Urine Neg (Neg); Ketones, Urine 1+ (Neg); Leukocyte Esterase, Urine Neg (Neg); Nitrite, Urine Neg (Neg); Protein, Urine 1+ (Neg); Urobilinogen, Urine NORM (Normal)
[2020-06-26 21:53] LABS: Appearance, Urine Clear (Clear); Color, Urine Yellow (P-Yellow)
[2020-06-26 22:07] LABS: Amorphous Light (0-Heavy); Bacteria Few /hpf; Red Blood Cells, Urine 0-2 /hpf (0-2); Squamous Epithelial Cells Few /hpf (Few); White Blood Cells, Urine Rare /hpf (0-5)
--- NOTE | 2020-06-26 23:11 | NUR ---
PT TO ICU 2 VIA HOSPITAL BED WITH 2 CARPENTRY TEACHER RN'S, PT ORIENTED TO SELF ONLY, FOLLOWING COMMANDS BUT SOMEWHAT RESTLESS IN BED. FAMILY TO BEDSIDE, PT RECOGNIZES SPOUSE AND DAUGHTER, INTERACTS WITH FAMILY, BUT VERY CONFUSED. SPOUSE REPORTS PT HAS BECOME MORE AND MORE CONFUSED OVER THE PAST FEW WEEKS. PT ANSWERS SOME QUESTIONS APPROPRIATELY. PT ON 3L PER NC TO MAINTAIN O2 SATURATIONS> 90%. MONITOR SHOWS SINUS RHYTHM, POSSIBLE ARRHYTHMIA VS PAC'S, BP STABLE. R RADIAL SITE WITH TR BAND AND WRIST BOARD IN PLACE, SITE SOFT AND NONTENDER. R FEMORAL ACCESS WITH TEGADERM CHG, SITE SOFT AND NONTENDER, FIRMNESS NOTED TO MID LOWER ABD, CARPENTRY TEACHER RN'S REPORT PT HAS A FULL BLADDER. PT TO BEDPAN, UNABLE TO VOID. BEDPAN REMOVED, ENCOURAGED PT TO VOID IN ATTENDS, PT STILL UNABLE TO VOID. BLADDER SCAN SHOWED MORE THAN 800ml URINE, CALL PLACED TO SREE GUNDERSON NP, NEW ORDER FOR SMITH. SMITH PLACED AND URINE SPECIMENT SENT TO LAB. MEPILEX TO SACRAL AND BUTTOCKS REMOVED, NEW PHOTO'S IN CHART, SITES REDRESSED WITH NON ADHERENT BANDAGES AND MEPILEX DRESSINGS. PT REPORTS 10/10 BACK AND R LEG PAIN, 1MG DILAUDID ADMINISTERED. PT CURRENTLY SLEEPING. HEPARIN AND TPN ON SB, RE-STARTED INFUSIONS UPON ARRIVAL TO UNIT. NOTIFIED PHARMACY OF HEPARIN GTT ON SB, RESTARTED PER PHARMACY PREVIOUS ORDER AND PTT ADJUSTED PER PHARMACY.
--- NOTE | 2020-06-27 00:27 | NUR ---
ASSUMED CARE: REPORT FROM MAYI CABELLO. 2CC AIR DEFLATED FROM R TR BAND. O2 DECREASED TO 1L N/C. NO ACUTE CHANGES.
--- NOTE | 2020-06-27 00:28 | NUR ---
REPORT GIVEN TO ANITA CABELLO
--- NOTE | 2020-06-27 00:49 | NUR ---
OOZING FROM TR SITE. 2CC AIR REINSTILLED. WILL CONTINUE TO MONITOR.
[2020-06-27 01:22] LABS: Hematocrit 24.7 % (33.0-51.0)
[2020-06-27 05:37] LABS: BASOPHILS ABSOLUTE AUTO 0.01 K/mm3 (0.00-0.23); BASOPHILS PERCENT AUTO 0 % (0-2); EOSINOPHILS ABSOLUTE AUTO 0.12 K/mm3 (0.00-0.68); EOSINOPHILS PERCENT AUTO 2 % (0-6); Hematocrit 25.4 % (33.0-51.0); Hemoglobin 8.4 g/dL (11.5-16.0); IMMATURE GRAN ABSOLUTE AUTO 0.05 K/mm3 (0.00-0.10); IMMATURE GRAN PERCENT AUTO 1 % (0-1); LYMPHOCYTES ABSOLUTE AUTO 0.75 K/mm3 (0.84-5.20); LYMPHOCYTES PERCENT AUTO 12 % (21-46); MONOCYTES PERCENT AUTO 9 % (4-13); Mean Corpuscular HGB 35.3 pg (26.0-34.0); Mean Corpuscular HGB Conc 33.1 g/dL (31.5-36.5); NEUTROPHILS ABSOLUTE AUTO 4.83 K/mm3 (1.96-9.15); NEUTROPHILS PERCENT AUTO 76 % (41-73); NRBC ABSOLUTE 0.11 K/mm3 (0.00-0.02); NRBC Auto 1.7 /100 WBC (0.0-0.2); Platelet Count 117 K/mm3 (150-400); RDW Coefficient Variation 18.8 % (11.7-14.2); RDW Standard Deviation 73.6 fL (35.1-46.3); Red Blood Cell Count 2.38 M/mm3 (3.80-5.20); White Blood Cell Count 6.36 K/mm3 (4.00-11.30)
[2020-06-27 05:39] LABS: Mean Corpuscular Volume 107 fL (80-100)
--- NOTE | 2020-06-27 05:49 | NUR ---
SHIFT SUMMARY: R FEMORAL SITE WITH HARDENED AREA AROUND, BUT FEELS LIKE FROM PREVIOUS ACCESS. NO HEMATOMA AT SITE. R RADIAL TR BAND REMOVED AND TEGADERM APPLIED. PT HAS INTERMITTENT PAIN IN SHOULDERS AND LEGS; MEDICATED WITH DILAUDID PRN.
[2020-06-27 06:04] LABS: Magnesium, Blood 2.1 mg/dL (1.6-2.4)
[2020-06-27 06:05] LABS: Alanine Aminotransfer (ALT/SGP 29 U/L (12-78); Albumin, Blood 1.7 g/dL (3.4-5.0); Albumin/Globulin Ratio 0.6 (0.8-1.8); Alk Phos 88 U/L (50-136); Anion Gap 5 mmol/L (6-16); Aspartate Aminotrans (AST/SGOT 45 U/L (12-37); Bilirubin, Total 0.5 mg/dL (0.1-1.0); Blood Urea Nitrogen 14 mg/dL (8-24); Bun/Creatinine Ratio 41.7 (12.0-20.0); CO2, Blood 28 mmol/L (21-32); Calcium, Blood 8.1 mg/dL (8.5-10.1); Chloride, Blood 102 mmol/L (98-108); Creatinine, Blood 0.34 mg/dL (0.40-1.00); Glomerular Filtration Rate >60 (60-); Glucose, Blood 100 mg/dL (70-99); Phosphorus, Blood 3.3 mg/dL (2.5-4.9); Potassium, Blood 4.1 mmol/L (3.5-5.5); Sodium, Blood 135 mmol/L (136-145); Total Protein, Blood 4.7 g/dL (6.4-8.2); Triglycerides 137 mg/dL (30-160)
--- NOTE | 2020-06-27 12:31 | NUR ---
REASSESSMENT PT HAS BEEN RESTING IN BED THROUGHOUT THE MORNING. SHE KEEPS HER EYES CLOSED AND ONLY RESPONDS IF SPOKEN TOO. SHE IS ORIENTED AT TIMES AND OTHER TIMES CONFUSED. WHEN ASKING HOW SHE GETS UP TO A CHAIR SHE STARTED MUMBLING ABOUT USING THE OVEN AND BAKING SOMETHING. SHE IS VERY WEAK. LIFT REQUIRED TO GET HER UP TO A CHAIR. PT'S IS AT THE BEDSIDE AND WAS UPSET ABOUT HER GETTING OUT OF BED DESPITE BEING EDUCATED ON ALL THE BENEFITS OF IT. ULTIMATELY THE PT REQUESTED IT SO THE LIFT WAS USED AND SHE APPEARS COMFORTABLE IN THE CHAIR. LUNGS ARE CLEAR BUT VERY DIM PT IS ONLY TAKING SHALLOW BREATHS. PT IS FEBRILE, HAD TO STOP PT'S FROM PUTTING MULTIPLE BLANKETS ON HER. SR WITH PACS, BP STABLE. WORKED WITH SPEECH TODAY, STILL NPO. R RADIAL AND L FEMORAL SITE C/D/I, SOFT, NO HEMATOMA. CONTINUING TO MONITOR.
--- NOTE | 2020-06-27 16:43 | NUR ---
SHIFT SUMMARY PT HAS BEEN RESTING THROUGHOUT THE DAY, ONLY COMMUNICATING WHEN SPOKEN TOO. SHE IS DELIRIOUS AT TIMES, ASKING ABOUT PEOPLE ACROSS THE STREET OR GIVING A HOT DOG TO A DOG. SHE IS ORIENTED CONSISTENTLY TO HERSELF AND HER FAMILY. LUNGS ARE CLEAR BUT DIM, ON 2L/NC UP FROM 1L/NC THIS MORNING. SR WITH PAC, SBP RUNS IN THE 140-160S. PT HAS ONGOING BACK AND NECK PAIN, MEDICATING WITH DILAUDID PER ORDERS. SPEECH SAW PT TODAY AND RECOMMENDED CONTINUING TO HOLD ALL PO. PT HAD A FEVER TODAY THAT BROKE ON IT'S OWN AND TEMP NOW 98.3F. SMITH WITH CL MARQUES URINE. DRESSINGS INTACT ON BUTTOCKS. R RADIAL AND L FEMORAL SITE C/D/I, SOFT WITH NO HEMATOMA. SPOKE WITH DR. HORTON THIS EVENING AND RECEIVED OK TO DOWNGRADE PT TO PCU STATUS.
--- NOTE | 2020-06-27 17:24 | NUR ---
TRANSFER PT TRANSFERRED TO PCU 3. REPORT GIVEN TO DESTINEY ROGERS. PT TRANSFERRED VIA BED WITH RN AND ANITA. ALL BELONGINGS SENT TO NEW ROOM. PT TOLERATED TRANSFER WELL. PT'S INFORMED OF ROOM CHANGE.
--- NOTE | 2020-06-27 18:09 | NUR ---
PATIENT ARRIVED FROM ICU THIS HALF OF SHIFT, NO SIGNS OF ACUTE DISTRESS AT THIS TIME. PATIENT ORIENTED TO SELF, STATES THAT SHE WISHES "TO LAY DOWN AND REST." SHAHBAZ, JOHN.
[2020-06-28 04:10] LABS: BASOPHILS ABSOLUTE AUTO 0.02 K/mm3 (0.00-0.23); BASOPHILS PERCENT AUTO 0 % (0-2); EOSINOPHILS ABSOLUTE AUTO 0.08 K/mm3 (0.00-0.68); EOSINOPHILS PERCENT AUTO 1 % (0-6); Hematocrit 26.1 % (33.0-51.0); Hemoglobin 8.5 g/dL (11.5-16.0); IMMATURE GRAN PERCENT AUTO 1 % (0-1); LYMPHOCYTES ABSOLUTE AUTO 0.92 K/mm3 (0.84-5.20); LYMPHOCYTES PERCENT AUTO 13 % (21-46); MONOCYTES ABSOLUTE AUTO 0.76 K/mm3 (0.16-1.47); MONOCYTES PERCENT AUTO 11 % (4-13); Mean Corpuscular HGB 34.8 pg (26.0-34.0); Mean Corpuscular HGB Conc 32.6 g/dL (31.5-36.5); Mean Corpuscular Volume 107 fL (80-100); Mean Platelet Volume 11.6 fL (9.1-12.4); NEUTROPHILS ABSOLUTE AUTO 5.34 K/mm3 (1.96-9.15); NEUTROPHILS PERCENT AUTO 74 % (41-73); NRBC ABSOLUTE 0.07 K/mm3 (0.00-0.02); Platelet Count 121 K/mm3 (150-400); RDW Coefficient Variation 17.2 % (11.7-14.2); RDW Standard Deviation 68.1 fL (35.1-46.3); Red Blood Cell Count 2.44 M/mm3 (3.80-5.20); White Blood Cell Count 7.22 K/mm3 (4.00-11.30)
[2020-06-28 04:28] LABS: Anion Gap 4 mmol/L (6-16); Blood Urea Nitrogen 9 mg/dL (8-24); Bun/Creatinine Ratio 27.5 (12.0-20.0); CO2, Blood 28 mmol/L (21-32); Chloride, Blood 102 mmol/L (98-108); Creatinine, Blood 0.33 mg/dL (0.40-1.00); Glomerular Filtration Rate >60 (60-); Glucose, Blood 107 mg/dL (70-99); Magnesium, Blood 2.1 mg/dL (1.6-2.4); Phosphorus, Blood 2.7 mg/dL (2.5-4.9); Potassium, Blood 4.3 mmol/L (3.5-5.5); Sodium, Blood 134 mmol/L (136-145)
--- NOTE | 2020-06-28 05:30 | NUR ---
SHIFT SUMMARY PT ALERT TO SELF AND FAMILY AT BEGINNING OF SHIFT. PT REPORTS PAIN IN BACK AND COCCYX. MEPLEX IN PLACE. MEDICATIONS GIVEN PER EMAR. PT REPORTS RELIEF WITH MEDICATIONS. PT NAUSEATED T/O SHIFT. MEDICATIONS GIVEN PER EMAR. ORAL CARE Q 4 HRS. PT TOLERATED WELL. PT REPOSITIONED Q 2 HRS AND NEEDED FOR COMFORT. PT HAVING GENERALIZED WEAKNESS AND DIFFICULTY WITH MOVEMENTS D/T WEAKNESS. CHARGE NURSE NOTIFIED. NO CHANGES OCCURED T/O SHIFT WITH WEAKNESS. NO NUMBNESS OR TINGLING IN EXTREMITIES. HEPARIN GTT DOSAGE CHANGE PER PHARMACIST, CHANGES VERIFIED WITH DESTINEY HANCOCK AT BEDSIDE. AT END OF SHIFT PT ABLE TO STATE CURRENT LOCATION AND YEAR. TPN RUNNING PER EMAR. SMIHT PATENT TO GRAVITY DRAIN. RADIAL SITE WNL, DRESSING C/D/I. ARM BOARD IN PLACE. FEMORAL SITE WNL. DRESSING C/D/I. HR TACHYCARDIC AT TIMES. BP STABLE. NO CP OR PRESSURE REPORTED. WILL CONTINUE TO MONITOR UNTIL REPORT GIVEN TO DAYSHIFT RN.
--- NOTE | 2020-06-28 15:50 | NUR ---
Supportive visit this afternoon. Pt resting in pain reporting significant pain. Pt agreeable to reposition. Assisted Bedside RN Dami in repositioning Pt. Pt reports this helped some but still experiencing significant pain. Educated on distraction techniques and suggested turning television on. Pt agreeable. F/U when spouse Jeff arrived. Offered support and therapeutic listening. Dirk reports hopefulness that procedures planed with Dr Rebolledo will assist with managing Pt's chronic pain issues. Continued therapeutic listening. Spoke with Dr Marmolejo and discussed case. Dr Marmolejo reports plan for procedures with Dr Rebolledo and if no significant changes in a couple of days he will approach goals of care with Pt and family. Palliative Care will remain available.
--- NOTE | 2020-06-28 18:00 | NUR ---
SHIFT SUMMARY: PT CONTINUES IN PCU TODAY, LETHARGIC BUT AROUSES TO VOICES, PERIODICALLY CRIES OUT ASKING FOR FAMILY TO HELP HER. PT C/O PAIN OFTEN, RECEIVING PRN DILAUDID Q4H AND FREQUENT POSITION CHANGES. PT CONTINUES NPO TODAY, RECEIVES ORAL CARE FREQUENTLY T/OUT SHIFT. PT'S AT BEDSIDE FOR MAJORITY OF DAY. PT PENDING CONSULT WITH DR NAVARRO TOMORROW FOR POSSIBLE STENT PLACEMENT AND/OR PEG TUBE PLACEMENT. CURRENTLY, PT RECEIVING HEPARIN GTT AND NUTRITION VIA IV AND IS TOLERATING WELL. WILL CONTINUE TO MONITOR AND TREAT ACCORDINGLY.
--- NOTE | 2020-06-28 22:46 | NUR ---
MEPLEX CHANGED DURING PT REPOSITIONING MEPLEX BECAME SOILED. MEPLEX ON SACRAL AREA, AND R AND LEFT BUTTOCKS WAS CHANGED.
--- NOTE | 2020-06-29 01:33 | NUR ---
PHYSICIAN NOTIFIED PT OXYGEN SATURATION DOWN TO 89%. OXYGEN VIA NC INCREASED TO 5.5. PT OXYGEN SATURATION REMAINS 92%. PT HAS NEW ONSET WHEEZING. POSITIVE FLUID BALANCE NOTED. PHYSICIAN ORDERED ONE TIME DOSE OF 40 MG OF LASIX AND DAILY AT 0900. WILL CONTINUE TO MONITOR.
[2020-06-29 02:57] LABS: BASOPHILS ABSOLUTE AUTO 0.01 K/mm3 (0.00-0.23); BASOPHILS PERCENT AUTO 0 % (0-2); EOSINOPHILS ABSOLUTE AUTO 0.05 K/mm3 (0.00-0.68); EOSINOPHILS PERCENT AUTO 1 % (0-6); Hematocrit 25.4 % (33.0-51.0); Hemoglobin 8.2 g/dL (11.5-16.0); IMMATURE GRAN ABSOLUTE AUTO 0.16 K/mm3 (0.00-0.10); IMMATURE GRAN PERCENT AUTO 2 % (0-1); LYMPHOCYTES ABSOLUTE AUTO 0.83 K/mm3 (0.84-5.20); LYMPHOCYTES PERCENT AUTO 8 % (21-46); MONOCYTES ABSOLUTE AUTO 0.66 K/mm3 (0.16-1.47); MONOCYTES PERCENT AUTO 6 % (4-13); Mean Corpuscular HGB 34.6 pg (26.0-34.0); Mean Corpuscular HGB Conc 32.3 g/dL (31.5-36.5); Mean Corpuscular Volume 107 fL (80-100); Mean Platelet Volume 11.8 fL (9.1-12.4); NEUTROPHILS ABSOLUTE AUTO 9.23 K/mm3 (1.96-9.15); NEUTROPHILS PERCENT AUTO 84 % (41-73); NRBC ABSOLUTE 0.14 K/mm3 (0.00-0.02); NRBC Auto 1.3 /100 WBC (0.0-0.2); Platelet Count 126 K/mm3 (150-400); RDW Coefficient Variation 16.9 % (11.7-14.2); RDW Standard Deviation 65.7 fL (35.1-46.3); Red Blood Cell Count 2.37 M/mm3 (3.80-5.20); White Blood Cell Count 10.94 K/mm3 (4.00-11.30)
[2020-06-29 03:14] LABS: Anion Gap 4 mmol/L (6-16); Blood Urea Nitrogen 11 mg/dL (8-24); Bun/Creatinine Ratio 32.8 (12.0-20.0); CO2, Blood 30 mmol/L (21-32); Calcium, Blood 8.3 mg/dL (8.5-10.1); Chloride, Blood 101 mmol/L (98-108); Creatinine, Blood 0.34 mg/dL (0.40-1.00); Glomerular Filtration Rate >60 (60-); Glucose, Blood 125 mg/dL (70-99); Phosphorus, Blood 3.9 mg/dL (2.5-4.9); Potassium, Blood 3.9 mmol/L (3.5-5.5); Sodium, Blood 135 mmol/L (136-145)
--- NOTE | 2020-06-29 05:37 | NUR ---
SHIFT SUMMARY PT ALERT AND ORIENTED TO SELF AND FAMILY. PT BED REST AT THIS TIME. Q 2 TURNS AND TURNED FOR COMFORT. PT REPORTS SEVERE PAIN, MEDICATIONS GIVEN PER EMAR. PT TACHYCARDIC T/O SHIFT. OXYGEN SATURATION MAINTAINED 90%-92% ON 5-6 L OF OXYGEN VIA NC. PHYSICIAN NOTIFIED OF CHANGES. BP STABLE AND HYPERTENSIVE AT TIMES. ORAL CARE PROVIDED Q 4 HRS. HEPARIN DOSAGE CHANGE OCCURED DURING SHIFT, VERIFIED WITH BAM LOYA RN. MEPLEX ON SACRAL AREA CHANGED 2 TIMES DURING SHIFT D/T SOILING. SMITH PATENT AND TO GRAVITY DRAIN. WILL CONTINUE TO MONITOR UNTIL REPORT GIVEN TO DAYSHIFT DESTINEY.
--- NOTE | 2020-06-29 11:11 | NUR ---
Clinical Visit: Called to room by nurse. Dr. Marmolejo in pt's room, discussing with pt's daughter. Follow up with daughter after doc leaves room to answer questions and listen to concerns. Daughter is expressing hopelessness over medical treatments. She relays again, how much she has taken her mother to doctors and hospitals all over the state, trying to "find out what is wrong with her [patient]." She states that she just wants a provider to perform the correct surgeries "so that she can start to heal." She discusses how a clot was found in her mother's leg and was fixed; "I don't know why they can't just cut her open and fix all of the clots." Allowed time for daughter to express her fears over her mother not getting better. Listened to concerns she is having about her mother's care. Reviewed PEG tube placement, at her request. She states that this is what they are discussing having one for her mother. Reviewed care of PEG at home, discussed different types of feedings (bolus vs pump). Patient is confused. She is aware of her daughter and is conversing with her, however, she is not aware of the conversation around her regarding her care options. She is complaining of severe pain, uncomfortable in the bed. Daughter is attentive to pt's complaints and attempts to get the pt comfortable. Provided booklet, Hard Choices for [place] People. It has sections on CPR, feeding tubes, comfort measures options. Daughter reports she likes receiving information via reading. She thanks me for the visit. Plan to follow up with the family and Dr. Marmolejo when pt's spouse is in the room to continue discussion.
--- NOTE | 2020-06-29 11:43 | NUR ---
RECEIVED CRITICAL VALUE FROM LAB RE: PTT >139. DR REALTRATE NOTIFIED. PHARMACY NOTIFIED, RECEIVED INSTRUCTIONS TO HOLD HEPARIN UNTIL LABS REDRAWN TO DETERMINE HEPARIN INFUSION RATE. HEPARIN PLACED ON STANDBY UNTIL FURTHER NOTICE.
--- NOTE | 2020-06-29 18:09 | NUR ---
SHIFT SUMMARY: PT CONTINUES LETHARGIC AND ORIENTED TO SELF AND FAMILY THROUGHOUT SHIFT. PT AROUSES TO HER NAME, WILL ANSWER QUESTIONS BUT TRAILS OFF TOWARD THE END OF HER SENTENCE. PT CONTINUES TO CALL OUT TO FAMILY MEMBERS, DAUGHTER AND SPOUSE WERE AT BEDSIDE FOR MOST OF DAY IN ANTICIPATION OF MEETING WITH DOCTORS TO DETERMINE PLAN OF CARE. FAMILY MEMBERS ATTENTIVE TO PT AND ATTEMPTING TO HELP MEET HER NEEDS. PT REPOSITIONED OFTEN, APPEARS TO TOLERATE BEING TURNED TOWARD RT SIDE MORE THAN HER LEFT. PT CONTINUES TACHYCARDIC, O2 SATS MAINTAINED 90-92% ON O2 VIA NC AT 6L/MIN. DR NAVARRO TO ROOM RECENTLY TO DISCUSS PLAN OF CARE. AT THIS TIME, PEG TUBE PLACEMENT IS PLANNED FOR 06/30/20. PT'S FAMILY IS AWARE OF PLAN. WILL CONTINUE TO MONITOR PT AND TREAT ACCORDINGLY.
--- NOTE | 2020-06-29 23:00 | NUR ---
PHYSICIAN NOTIFIED PHYSICIAN NOTIFIED OF PT'S INCREASE IN HR, PT'S UNCONTROLLED PAIN AND PT'S INCREASED OXYGEN NEEDS. RESPIRATORY CARE ORDERED. MEDICATIONS FOR PAIN ORDERED PER PHYSICIAN. PT NOW ON 10 L OF OXYGEN VIA HIGH FLOW NC.
[2020-06-30 05:46] LABS: BASOPHILS ABSOLUTE AUTO 0.01 K/mm3 (0.00-0.23); BASOPHILS PERCENT AUTO 0 % (0-2); EOSINOPHILS ABSOLUTE AUTO 0.07 K/mm3 (0.00-0.68); EOSINOPHILS PERCENT AUTO 1 % (0-6); Hematocrit 24.8 % (33.0-51.0); Hemoglobin 7.9 g/dL (11.5-16.0); IMMATURE GRAN ABSOLUTE AUTO 0.15 K/mm3 (0.00-0.10); IMMATURE GRAN PERCENT AUTO 1 % (0-1); LYMPHOCYTES ABSOLUTE AUTO 1.21 K/mm3 (0.84-5.20); LYMPHOCYTES PERCENT AUTO 10 % (21-46); MONOCYTES ABSOLUTE AUTO 0.38 K/mm3 (0.16-1.47); MONOCYTES PERCENT AUTO 3 % (4-13); Mean Corpuscular HGB 34.2 pg (26.0-34.0); Mean Corpuscular HGB Conc 31.9 g/dL (31.5-36.5); Mean Corpuscular Volume 107 fL (80-100); Mean Platelet Volume 11.8 fL (9.1-12.4); NEUTROPHILS PERCENT AUTO 85 % (41-73); NRBC ABSOLUTE 0.09 K/mm3 (0.00-0.02); NRBC Auto 0.7 /100 WBC (0.0-0.2); Platelet Count 130 K/mm3 (150-400); RDW Coefficient Variation 16.8 % (11.7-14.2); RDW Standard Deviation 66.3 fL (35.1-46.3); Red Blood Cell Count 2.31 M/mm3 (3.80-5.20); White Blood Cell Count 12.42 K/mm3 (4.00-11.30)
--- NOTE | 2020-06-30 05:55 | NUR ---
SHIFT SUMMARY PT ALERT TO SELF AND FAMILY AT THIS TIME. PT IN SEVERE PAIN T/O SHIFT, PHYSICIAN NOTIFIED. MEDICATIONS PRESCRIBED PER EMAR. PT HR INCREASED T/O SHIFT AND OXYGEN DEMANDS INCREASED T/O SHIFT. PHYSICIAN NOTIFIED. PT REPOSITIONED Q 2 HRS AND NEEDED FOR COMFORT. HEPARIN GTT RUNNING, VERIFIED WITH DESTINEY ZAIDI. MEPLEX ON COCCYX CHANGED. HR TACHYCARDIC IN 120'S-130'S T/O SHIFT. BP STABLE. PT REPORTS NO CP OR PRESSURE. OXYGEN SATURATION MAINTAINED AT 90-93% ON 12 L OF OXYGEN VIA HIGH FLOW NC. WILL CONTINUE TO MONITOR UNTIL REPORT GIVEN TO DAYSHIFT RN.
[2020-06-30 06:25] LABS: Anion Gap 6 mmol/L (6-16); Blood Urea Nitrogen 14 mg/dL (8-24); Bun/Creatinine Ratio 34.8 (12.0-20.0); CO2, Blood 28 mmol/L (21-32); Calcium, Blood 8.3 mg/dL (8.5-10.1); Chloride, Blood 100 mmol/L (98-108); Glomerular Filtration Rate >60 (60-); Glucose, Blood 122 mg/dL (70-99); Potassium, Blood 3.2 mmol/L (3.5-5.5); Sodium, Blood 134 mmol/L (136-145)
--- NOTE | 2020-06-30 06:30 | NUR ---
PHYSICIAN NOTIFIED PHYSICIAN NOTIFIED OF PT'S HGB LEFEL OF 7.9. NO ORDERS AT THIS TIME.
--- NOTE | 2020-06-30 16:30 | NUR ---
Clinical Visit: Called by nurse to come to room. Pt's is at bedside at this time. Pt awaiting consents from Dr. Perez to place a PEG tube tonight. Attended consent signing with nurse, Tiff. Pt is posturing and has arm movements that nurse is concerned is coming from a neurological illness or changes. Reviewed with Tiff and charge nurse, Breanna. Call placed to Dr. Marmolejo. Notified of neurological symptoms; roel has not helped with this. Order for CT of head without contrast ordered per Dr. Marmolejo. Updated nursing. Pt has a CT of pelvis, chest, and abd from Apr of this year.
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
--- NOTE | 2020-06-30 18:19 | NUR ---
Spiritual care note: I met with Jeff, pt's spouse, at bedside this morning. He spoke at length about their marriage. He expresses deep love for Aimee. He allowed me to pray for her. Jeff is convinced that if Aimee could get proper nutrition, she could recover. When I ask him about Aimee's illness, he appears unclear as to the reasons she has declined. "She's a fighter." He does not appear bothered by lack of clear answers. His only concern is getting her nutrition. He fully believes she can recover. While we spoke, Aimee drifted in and out of restless sleep. Her arms would flail, sometimes wildly. "This just started a day or two ago." Acostaneha does not know why and did not appear concerned to not have clear answer to this. We seemed to have an easy rapport, and Jeff was quite pleasant with me. I provided gentle primary substance abuse counselor and theraputic listening. I will remain available.
--- NOTE | 2020-06-30 18:34 | NUR ---
SHIFT SUMMARY; INCREASINGLY CONFUSED AND HALLUCNATING DURING SHIFT WITH UNCONTROLLED MOVEMENTS OF ARMS AND HANDS. UNABLE TO FOLLOW INSTRUCTIONS. DR. HORTON UPDATED OF CONDITION THROUGHOUT SHIFT. HEAD CT SCAN COMPLETED IN EVENING. PEG TUBE PLACED TODAY BY DR. NAVARRO, HEPARIN DRIP DC'D PER DR. NAVARRO DUE TO VISIBLE BLOOD IN THROAT WHICH WAS VISULIZED DURING PEG TUBE PLACEMENT PROCEDURE. MEDICATED SEVERAL TIMES DURING SHIFT FOR PAIN. REPOSITIONED DURING SHIFT Q2 HOURS WHEN ALLOWED BY SPOUSE. SPOUSE DECLINED MULTIPLE TIMES DURING SHIFT DUE TO PT APPEARING COMFORTABLE. REMAINS ON 10L HIGH FLOW O2, HR 130'S IN SINUS TACH DURING SHIFT, DR. HORTON AWARE. BRUISING THROUGHOUT BODY IN MULTIPLE STAGES OF HEALING. SKIN APPEARS DRY AND FRAGILE. SMITH CATH IN PLACED DRAINING CLEAR MARQUES URINE. WILL CONTINUE TO MONITOR AND TREAT UNTIL CHANGE OF SHIFT.
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
--- NOTE | 2020-06-30 20:17 | NUR ---
CARE ASSUMPTION PT A&O TO SELF ONLY. PT STATES DATE 2019, CONFIRMED SEPTEMBER 2019. PT STATES LOCATION "[facility] ON THE [facility]." PT STATES "TAKE ME UPSTAIRS. I'M PRINTING BOOKS, AND I'M PRINTING SOME FOR YOU." PT BILAT ARMS MOVING UNCONTROLLABLY W/ ANY ATTEMPTED MOVEMENT. VSS. MONITOR SHOWS ST, HR 110's-120's. LUNG SOUNDS CLEAR. SPO2 > 92% ON 10L HI-LALO NC. PT REPORTS ABD TENDERNESS. NEW PEG TUBE TO LUQ W/ SCANT AMOUNT BLOOD ON DRESSING NOTED. PEG TUBE CLAMPED AT THIS TIME. PT SKIN NOTED W/ EXTENSIVE BRUISING SCATTERED T/O. SMITH CATH PATENT & DRAINING CLEAR YELLOW URINE. CLINIMIX GTT INFUSING PER ORDERS. BED ALARM ON.
[2020-07-01 04:39] LABS: BASOPHILS ABSOLUTE AUTO 0.02 K/mm3 (0.00-0.23); BASOPHILS PERCENT AUTO 0 % (0-2); EOSINOPHILS ABSOLUTE AUTO 0.05 K/mm3 (0.00-0.68); EOSINOPHILS PERCENT AUTO 0 % (0-6); Hematocrit 24.6 % (33.0-51.0); Hemoglobin 7.8 g/dL (11.5-16.0); IMMATURE GRAN PERCENT AUTO 1 % (0-1); LYMPHOCYTES ABSOLUTE AUTO 0.64 K/mm3 (0.84-5.20); LYMPHOCYTES PERCENT AUTO 5 % (21-46); MONOCYTES ABSOLUTE AUTO 0.53 K/mm3 (0.16-1.47); MONOCYTES PERCENT AUTO 4 % (4-13); Mean Corpuscular HGB 34.1 pg (26.0-34.0); Mean Corpuscular HGB Conc 31.7 g/dL (31.5-36.5); Mean Corpuscular Volume 107 fL (80-100); Mean Platelet Volume 11.8 fL (9.1-12.4); NEUTROPHILS ABSOLUTE AUTO 11.27 K/mm3 (1.96-9.15); NEUTROPHILS PERCENT AUTO 89 % (41-73); NRBC ABSOLUTE 0.05 K/mm3 (0.00-0.02); NRBC Auto 0.4 /100 WBC (0.0-0.2); Platelet Count 155 K/mm3 (150-400); RDW Coefficient Variation 16.5 % (11.7-14.2); RDW Standard Deviation 65.1 fL (35.1-46.3); Red Blood Cell Count 2.29 M/mm3 (3.80-5.20); White Blood Cell Count 12.61 K/mm3 (4.00-11.30)
[2020-07-01 04:58] LABS: Anion Gap 6 mmol/L (6-16); Blood Urea Nitrogen 17 mg/dL (8-24); Bun/Creatinine Ratio 50.1 (12.0-20.0); CO2, Blood 29 mmol/L (21-32); Calcium, Blood 8.6 mg/dL (8.5-10.1); Chloride, Blood 97 mmol/L (98-108); Creatinine, Blood 0.34 mg/dL (0.40-1.00); Glomerular Filtration Rate >60 (60-); Glucose, Blood 125 mg/dL (70-99); Potassium, Blood 3.7 mmol/L (3.5-5.5); Sodium, Blood 132 mmol/L (136-145)
--- NOTE | 2020-07-01 06:52 | NUR ---
SHIFT SUMMARY PT CONTINUES TO BE A&O TO SELF ONLY. HR ELEVATED, OTHERWISE VSS. PT MEDICATED W/ PRN LOPRESSOR X1 THIS SHIFT W/ BRIEF IMPROVEMENT. HR AVERAGING 120's-130's T/O SHIFT W/ TOUCHING UP TO 140's-160's INTERMITTENTLY. 2ND DOSE OF IV LOPRESSOR TO BE GIVEN. PT ON 10L HI-LALO NC, TITRATED TO 15L THIS SHIFT FOR SPO2 > 90%. PT BILAT ARMS MOVE UNCONTROLLABLY. PEG TUBE TO LUQ CLAMPED AT THIS TIME. SMITH CATH PATENT & DRAINING. CLINIMIX GTT INFUSING PER ORDERS. BED ALARM ON.
--- NOTE | 2020-07-01 08:00 | NUR ---
ASSUMED CARE AT 0700, REPORT FROM DESTINEY OLIVARES. LAYING SUPINE IN BED, RESPONSIVE TO VERBAL STIMULI ONLY. NOT FOLLOWING COMMANDS. SKIN IS ASHEN THOMAS AND APPEARS MOTTLED. 15L O2 HIGH FLOW TO MAINTAIN STATS OF 94%. PALLATIVE CARE RN CALLED TO ROOM THIS RN HAS CONCERNS OF IMMINENT . DAUGHTER ARRIVES AND IS AT BEDSIDE. DAUGHTER AGRESSIVE AND DEMANDING TO KNOW WHAT IS WRONG WITH HER MOM. EXPLAINED CONCERNS THAT ACTIVE STAGE OF DYING IS STARTING. PALLATIVE CARE RN EXPLAINED RISKS/BENEFITS OF COMFORT CARE AND STAGES OF DYING PROCESS. DAUGHTER JOSEPHINE VERBALIZES WOULD LIKE HER MOTHER COMFORTABLE AND PAIN TREATED. DAUGHTER AGREES TO CALL HER FATHER DECISIONS NEED TO BE MADE ON WISHES. DAUGHTER JOSEPHINE EXPRESSES FAMILIES WISHES FOR COMFORT CARE. DR. REALTRATE NOTIFIED BY PHIL PALLATIVE CARE RN.
--- NOTE | 2020-07-01 10:14 | NUR ---
PALLATIVE CARE RN AT BEDSIDE, PT APPEARS IMMINENT. RR INCREASING TO 30, HR 130-140, MUMBLES INCOHERANTLY. DAUGHTER AGREES TO DNR STATUS WITH DESTINEY VILLARREAL.
--- NOTE | 2020-07-01 10:34 | NUR ---
Called to room pt has a decline is status. She is dusky and mottled and minimally responsive. Daughter at bedside. Direct conversation with her daughter tearfull and avoidant. Supporitve conversation about end of life and suffering. She with great sorrow expressed understanding and agreed to call her father and inform him of the need to transtion to DNR and comfort. Made a follow up call to pt he expressed understanding. pt transitioned tocomfort care. Daughter and chaplian at bedside.
--- NOTE | 2020-07-01 11:45 | NUR ---
UPDATE; MULTIPLE FAMILY MEMBERS AT BEDSIDE WITH SPIRITAL CARE AND DR. HORTON. SPOUSE IMMEDIATLY AGGRESIVE TOWARDS DOCTOR WHEN HE ENTERS ROOM. PT STATES IF YOUR JUST GOING TO PULL THE PLUG I DON'T KNOW WHY YOU ARE IN HERE. SPOUSE AGGRESIVE AND ASKS MULTIPLE QUESTIONS REGARDING PT'S STATES. "SO WHAT CHANGED BETWEEN YESTERAY AND TODAY?" ASKS WHY PEG TUBE WAS PLACED LAST NIGHT IF PT WAS IN SUCH BAD CONDITION. EACH TIME DOCTOR ATTEMPTS TO ANSWER SPOUSES QUESTIONS HE IS INTERRUPTED WITH HOSTILITY FROM SPOUSE. SPOUSE CONTINUES TO STATE SHE SHOULD HAVE BEEN TRANSFERRED BECAUSE HE KNOWS [place] "COULD ACTUALLY DO SOMETHING". SPOUSE STATES THIS IS THE WORST CARE HE'S EVER SEEN IN HIS LIFE. ACCUSES THIS RN OF OF PULLING OFF THE "CORDS" BECAUSE SHE'S BEING CONSIDERED A GONNER. ATTEMPTED TO EXPLAIN COMOFRT CARE BEING FOCUSED ON PT COMFORT AND PULSE OX WAS REMOVED TO NOT HAVE ALARMS SOUNDING. SPOUSE CONTINUES WITH HOSTILITY AND TELLS DR. HORTON TO GET OUT OF THE ROOM AND HE DOESN'T WANT HIM BACK. FAMILY IS TALKING WITH THIS RN SPOUSE TELLS THIS RN TO LEAVE BECAUSE NOBODY NEEDS TO HEAR MY YAPPING. DAUGHTER POLITLY ASKS THIS RN TO STEP OUT, I COMPLY. BIOLOGY INTERN NOTIFIED OF SPOUSES BEHAVIOR.
--- NOTE | 2020-07-01 11:59 | NUR ---
physican contacted to adjust medication due to escalating symptoms.
--- NOTE | 2020-07-01 13:17 | NUR ---
Update: Assisted with care of Pt. Pt daughter's and in room. One Daughter questioning who made the decision to make pt comfort care status. 2nd daughter in room stated that she is the one who spoke with palliative care but that she didn't realize that it was called comfort care. states that she is more non-responsive now and is wanting to know what medications and dosages she was getting. Explained that she is still getting the dilaudid at 1mg at this time, but that if she appears uncomfortable and if she needs more she can be treated. Explained that at end of life pt do tend to become more non-responsive. and 1st daughter also questioning why she did not have tube feeding running when she now has a peg tube. Explained that with comfort care and end of life care we do not do life prolonging treatments so we can start tube feedings, but this would mean that she could not have as many comfort medications. Family did not state they wanted to withdraw comfort care at this time, but informed them if the decision changed to let me know.
--- NOTE | 2020-07-01 14:23 | NUR ---
Update: Pt with grimace and look of pain, agitation. Still dose not respond verbally or open eyes. 2 daughters and son at bedside. Daughters asked if she could be retaining CO2 since she is on 15L oxygen at this time. Explained that she could be, but that would not check her labs nor would we treat elevated co2 with her being comfort care. Did check biox and pt 100%. Decreased to 6L oxygen and biox 87-90%. Informed family that we could spot check her oxygen level, but that the ear continuous monitor may not be comfortable so I would not leave it on. Family accepting and understanding of this. Offered pain medication for the appearance of pain, family requested not to give it so that she would hopefully wake up to be able to talk with family, however after pt continued to look very uncomfortable they agreed to a dose of pain medication. Informed them I would give a smaller dose, and that I could give more if needed.
--- NOTE | 2020-07-01 17:49 | NUR ---
Spiritual care note: I was present in room with spouse, Jeff, and 2 dtrs when physician arrived. DESTINEY Garrison also present. Jeff became verbally aggressive to RN and physician, asking why pt was doing so poorly. "Why did you put in the feeding tube if she was dying!" "You're treating her like a piece of meat, now." "[facility] would know what to do." Both myself and RN offered to change Aimee's treatment back to full code and make inquiry about transferring pt to [facility]. Acostaneha ignored these offers, focusing on past care and missed opportunities. I strongly suspect that Jeff and his dtrs are in the deepest depths of grief with anger and irrationality as it's manifestation. Strangely, Jeff held my hand throughout much of this conversation, as we had established an easy rapport in previous days. Then Jeff and dtr asked RN and physican to leave. I looked at Jeff and said, "We will do whatever you want us to do." He nodded and I left to provide family some privacy. I will remain available.
--- NOTE | 2020-07-01 17:51 | NUR ---
Doctor reena notified Dr Perez spoke with family. Dr Marmolejo to speak with family regarding level of care.
--- NOTE | 2020-07-01 18:18 | NUR ---
update: Dr. Perez went in to speak with pt and her family. Family voiced frustration with comfort care and stated that they felt they were not the ones to make this decision. Dr. Marmolejo was contacted by palliative care about these concerns and treatment has been re-ordered. Will attempt to have palliative care, Dr. Perez and hospitalist have conversation with pt and family about plan of care, in the meantime tube feeding, clinimix and other treatments will be initiated. Pt appears comfortable at this time but is not opening eyes or responding verbally. Will continue to monitor and treat.
--- NOTE | 2020-07-01 19:00 | NUR ---
I was present at bedside when Rob RN, clarified with spouse pt's change to Full Code treatement. It was clearly explained to Jeff that we would restart all medications and labs, perform CPR if heart faltered, and intubate in ICU if required. Jeff appeared to understand, saying "yes, that's what I want." After clearing with PCU charge and RN supervisor doping, I advisewd Jeff that he could spend the night--tonight only--if he wishes. My concern being that if Aimee were to code tonight, I would want family to see [facility] team making the heroic effort to save her. Aimee appears dusky, non-responsive. Skin color changes in extremities. Jeff appeared tired but calm when I left. I will remain available.
--- NOTE | 2020-07-01 19:44 | NUR ---
Shift Summary: Spoke with about resuming treatment. states that this is what he wants. Per daughters request explained the process of CPR and intubation to someone at this age and appearing this fragile. Explained that DNR does not mean do not treat. Explained that we would do full treatment with tube feeding, heprin, vitals, oxygen, antibiotics and all care except initiating CPR if her heart stops beating and we would not intibate if she stopped breathing. Pt sates that he is ok with this and that he does not want to prolong suffering, just that he wants to try to treat her with tube feeding and all other options. Also explained that depending on her respiratory status, oxygenation, BP and heart rate would determine how much and if we would be able to give pain medication. Described how Narcotics and Benzo's can decrease respiratory status as well as blood pressure and that if she is already struggling with this, we may not be able to treat her pain. , daughter and son voiced understanding and wanted to go forward with full care, but DNR/DNI. Pt appears very uncomfortable at this time. Grimmacing, Shaking head and continually lifting her arms. Agreed to medicate with 0.5mg dilaudid even with her biox at about 85-89% on 12L oxygen. After giving medication pt appears much more comfortable. Will report to night RN.
--- NOTE | 2020-07-01 20:00 | NUR ---
CARE ASSUMPTION PT LETHARGIC, OPENS EYES OCCASIONALLY. DIFFICULT TO UNDERSTAND, SPEAKS SOFTLY/MUMBLES. SP02 88% ON 10L NC. RESPIRATIONS 24, SHALLOW. TELMETRY READS SINUS TACH, HR 120'S-130'S. PT Q2H TURNS. PT DENIES PAIN. PT SKIN DUSKY, MOTTLED. FINGERS HAVE A THOMAS HUE. PT'S IN ROOM, STAYING THE NIGHT IN RECLINER. ORIENTED PT'S TO CALL LIGHT FOR NEEDS. CALL LIGHT IN REACH. WILL CONTINUE TO MONITOR.
[2020-07-02 05:20] LABS: Magnesium, Blood 2.4 mg/dL (1.6-2.4); Phosphorus, Blood 3.2 mg/dL (2.5-4.9)
--- NOTE | 2020-07-02 06:18 | NUR ---
SHIFT SUMMARY PT ALERT, ORIENTED TO SELF AND . AT BEDSIDE. PT ABLE TO ANSWER SOME QUESTIONS APPROPRIATELY, LIKE STATING A NUMBER TO RATE PAIN. PT SPEECH GARBLED AND SOFT, HARD TO UNDERSTAND. SP02>88% ON 10L. DIFFICULT TO GET READING FOR SP02 MONITOR. TELEMETRY READS SINUS TACH, HR 120'S-130'S. PT STATES PAIN 10/10 ALL OVER. MEDICATED W/ DIULADID PER EMAR. Q2H TURNS. PT'S SKIN IS MOTTLED, THOMAS AT FINGER TIPS/NAILS. SMITH DRAINING DARK YELLOW URINE TO GRAVITY. PT HAD ONE SMALL BM. ATTENDS C/D IN PLACE. PICC LINE DRAWS, CAPS CHANGED. CALL LIGHT IN REACH. WILL CONTINUE TO MONITOR.
--- NOTE | 2020-07-02 19:43 | NUR ---
NO ACUTE CHANGES DURING TODAY'S SHIFT. PT RESTS IN BED WITH SPONTANEOUS, UNCONTROLLED MOVEMENT OF ARMS. PT AROUSES TO HER NAME AND WILL ANSWER QUESTIONS BUT HER SENTENCES DRIFT OFF, MAKING IT DIFFICULT TO UNDERSTAND AT TIMES. PT NOT TOLERATING CONTINUOUS TUBE FEEDING, C/O FEELING FULL OR ABDOMINAL PAIN AND REQUESTS BREAKS FROM FEEDING, THIS NURSE COMPLIES WITH REQUEST. PT DOES NOT REQUIRE PAIN MANAGEMENT FREQUENTLY TODAY, TOLERATES BEING TURNED AND REPOSITIONED WELL. REPORT GIVEN TO DESTINEY KUHN TO ASSUME CARE OF PT.
--- NOTE | 2020-07-02 22:03 | NUR ---
ADMIT NOTE PT DROWSY, ABLE TO ANSWER TO SOME QUESTIONS APPROPRIATELY. NOT ABLE TO USE CALL LIGHT. SP02>90% ON 9L. TELEMETRY READS SINUS TACH W/ PACS. HR 120'S. CONTINUOUS FEEDING INFUSING AT 25 MLS. PAUSED INTERMITTENTLY D/T PT DISCOMFORT AND REQUEST. HEPARIN INFUSING PER EMAR. UPON ASSESSMENT, PT HAD ONE MED LOOSE BROWN BM. CLEAN DRY ATTENDS IN PLACE. Q2H REPOSITION. PT'S DAUGHTER IN ROOM UPON SHIFT CHANGE. DAUGHTER LEFT FOR THE NIGHT AND STATED WILL BE BACK IN THE MORNING. WILL CONTINUE TO MONITOR.
--- NOTE | 2020-07-03 05:47 | NUR ---
SHIFT SUMMARY NO ACUTE CHANGES THIS SHIFT. PT DROWSY, BUT ABLE TO ANSWER QUESTIONS APPROPRIATELY. PT DID HAVE AN EPISODE OF CONFUSION THIS SHIFT, ASKED THIS RN TO HELP HER PUT OUT HER CIGARETTE IN HER ASHTRAY BC SHE WAS FINISHED. SP02>90% ON 9L. PT TACHYPENIC. TELMETRY READS SINUS TACH, HR 110'S-130'S. PT HAS PEG TUBE, CONTINUOUS FEEDING INFUSING AT 25MLS. ATTEMPED TO INCRESE RATE BUT PT DID NOT TOLERATE, C/O OF NAUSEA, STOMACH PAIN. Q4H ORAL CARE DONE. PT HAD ONE LOOSE BM THIS SHIFT. C/D ATTENDS IN PLACE. SMITH CATHETER DRAINING TO GRAVITY. PT PICC LINE DRAWS WELL, CAPS CHANGED THIS SHIFT. HEPARIN INFUSING PER EMAR. WILL CONTINUE TO MONTIOR.
[2020-07-03 06:53] LABS: BASOPHILS ABSOLUTE AUTO 0.01 K/mm3 (0.00-0.23); BASOPHILS PERCENT AUTO 0 % (0-2); EOSINOPHILS ABSOLUTE AUTO 0.11 K/mm3 (0.00-0.68); EOSINOPHILS PERCENT AUTO 1 % (0-6); Hematocrit 23.5 % (33.0-51.0); Hemoglobin 7.3 g/dL (11.5-16.0); IMMATURE GRAN ABSOLUTE AUTO 0.06 K/mm3 (0.00-0.10); IMMATURE GRAN PERCENT AUTO 1 % (0-1); LYMPHOCYTES ABSOLUTE AUTO 0.69 K/mm3 (0.84-5.20); LYMPHOCYTES PERCENT AUTO 6 % (21-46); MONOCYTES ABSOLUTE AUTO 0.55 K/mm3 (0.16-1.47); MONOCYTES PERCENT AUTO 5 % (4-13); Mean Corpuscular HGB 33.8 pg (26.0-34.0); Mean Corpuscular HGB Conc 31.1 g/dL (31.5-36.5); Mean Corpuscular Volume 109 fL (80-100); Mean Platelet Volume 11.9 fL (9.1-12.4); NEUTROPHILS PERCENT AUTO 87 % (41-73); NRBC ABSOLUTE 0.02 K/mm3 (0.00-0.02); NRBC Auto 0.2 /100 WBC (0.0-0.2); Platelet Count 193 K/mm3 (150-400); RDW Coefficient Variation 16.9 % (11.7-14.2); Red Blood Cell Count 2.16 M/mm3 (3.80-5.20); White Blood Cell Count 10.92 K/mm3 (4.00-11.30)
[2020-07-03 07:11] LABS: Alanine Aminotransfer (ALT/SGP 61 U/L (12-78); Albumin, Blood 1.7 g/dL (3.4-5.0); Albumin/Globulin Ratio 0.5 (0.8-1.8); Alk Phos 93 U/L (50-136); Anion Gap 4 mmol/L (6-16); Aspartate Aminotrans (AST/SGOT 57 U/L (12-37); Bilirubin, Total 0.7 mg/dL (0.1-1.0); Blood Urea Nitrogen 22 mg/dL (8-24); Bun/Creatinine Ratio 48.5 (12.0-20.0); CO2, Blood 30 mmol/L (21-32); Calcium, Blood 8.1 mg/dL (8.5-10.1); Chloride, Blood 103 mmol/L (98-108); Creatinine, Blood 0.45 mg/dL (0.40-1.00); Globulin, Blood 3.6 g/dL (2.2-4.0); Glomerular Filtration Rate >60 (60-); Glucose, Blood 126 mg/dL (70-99); Magnesium, Blood 2.2 mg/dL (1.6-2.4); Potassium, Blood 3.3 mmol/L (3.5-5.5); Sodium, Blood 137 mmol/L (136-145); Total Protein, Blood 5.3 g/dL (6.4-8.2)
--- NOTE | 2020-07-03 07:57 | NUR ---
CARE ASSUMED REPORT RECEIVED, CARE ASSUMED AT 0700 FROM DESTINEY KUHN. UPON ASSUMING CARE, PT REPORTING SIGNFICANT PAIN IN BACK, NECK, AND STOMACH. REPORTING "20 OUT OF 10" DILAUDID GIVEN AT 0630. EDUCATED ON MEDICATION SCHEDULE. PT TEARFUL. HALLUCINATING STATING THINGS LIKE, "TAKE THIS PILL THING OUT OF MY HAND." AND "August." PT REPOSITIONED TWICE AND LESS TEARFUL, MORE RELAXED WHEN NOT DISTURBED. TUBE FEEDING PLACED ON HOLD FOR STOMACH PAIN. ORAL CARE PROVIDED PER PATIENT REQUEST. BP, HR AND RESPIRATORY RATE ELEVATED. AFEBRILE. SPO2 NOTED TO BE 100% ON 9 LPM NASAL CANNULA. DECREASED TO 8 LPM NASAL CANNULA AND PT PLACED ON CONTINUOUS PULSE OX FOR CLOSER MONITORING ON OXYGEN NEEDS. HEPARIN GTT TITRATED PER ORDERS FROM PHARMACY. PT LEFT WITH CALL LIGHT IN REACH, BUT APPEARS TOO WEAK TO UTILIZE CALL LIGHT. WILL ROUND ON PATIENT FREQUENTLY AND ADMINISTER PAIN MEDICATIONS WHEN AVAILABLE. SEE SHIFT ASSESSMENT.
--- NOTE | 2020-07-03 10:26 | NUR ---
FAMILY UPDATE SPOKE WITH PT'S FAMILY, REQUESTING UPDATE ON PATIENT. UPDATE PROVIDED. REQUESTING THAT AN ABG BE DRAWN ON PATIENT. INFORMED HER I WOULD SPEAK WITH DR. PER DR. BYNUM, DUE TO PT'S HEPARIN REQUIREMENTS, DRAWING AN ABG IS NOT A SAFE OPTION. ALSO SPOKE WITH DR. BYNUM REGARDING PT'S PAIN MANAGEMENT REGIME DUE TO INITIAL PATIENT ASSESSMENT THIS MORNING. PER DR. BYNUM, WILL INCREASE DILAUDID FREQUENCY TO EVERY 1 HOUR NEEDED.
--- NOTE | 2020-07-03 13:42 | NUR ---
PAIN MANAGEMENT SPOKE WITH PATIENT REGARDING PAIN MANAGEMENT. PT REPORTS PAIN "EVERYWHERE." DECLINES PAIN MEDICATIONS SHE STATES SHE JUST TOOK SOME. PT CALM, TALKING WITH STAFF. ASKING THE SAME QUESTIONS OVER AND OVER, BUT PLEASANT AND CALM.
--- NOTE | 2020-07-03 17:54 | NUR ---
SUMMARY HERE FOR DURATION OF VISITING HOURS. PT'S PRIMARY NEED THROUGHOUT THE DAY HAS BEEN PAIN MANAGEMENT. TUBE FEEDING HAS BEEN TURNED ON AND OFF TOLERATED. MEDICATED FOR PAIN THROUGHOUT DAY, REPOSITIONED OFTEN, PROVIDED WITH EGG CARTON MATTRESS. PT TALKING WITH STAFF, BUT CONTINUES TO BE CONFUSED WITH HALLUCINATIONS. VITALS HAVE REMAINED STABLE. TITRATED OXYGEN DOWN TOLERATED. CURRENTLY AT 5 LPM NASAL CANNULA. SEE REPEAT ASSESSMENTS AND PREVIOUS NOTES.
--- NOTE | 2020-07-03 19:50 | NUR ---
ASSUMED CARE PT ALERT; DENIES CHEST PAIN; VSS; HR 100'S; O2 SATS >92 ON 5L NC; C/O SEVERE PAIN; REPOSITIONED, DILAUDID GIVEN PER EMAR; CALL LIGHT IN REACH; BED IN LOWEST POSITION; WILL CONTINUE TO MONITOR.
--- NOTE | 2020-07-04 04:14 | NUR ---
SHIFT SUMMARY PT TEARFUL AND PAINFUL T/O SHIFT; DILAUDID ADMINISTERED PER EMAR W/ ONLY TEMPORARY RELIEF; PT C/O CHRONIC BACK PAIN AND ABDOMEN PAIN; REPOSITIONED Q2; HEATING PAD OFFERED, BUT REFUSED; PT CALLS OUT & MOANS OFTEN; HALLUCINATING; TUBE FEEDING TURNED OFF PT HAS NOT TOLERATED FEEDINGS THIS SHIFT; VSS; SINUS TACH NOTED ON TELE, HR 100-110; O2 SATS >93 ON NC TITRATED UP THIS SHIFT; RT TO BEDSIDE; O2 CURRENTLY AT 8L; SMITH PATENT & DRAINING MARQUES; CALL LIGHT IN REACH; BED IN LOWEST POSITION; WILL CONTINUE TO MONITOR CLOSELY UNTIL HAND OFF TO DAY SHIFT RN.
[2020-07-04 06:09] LABS: BASOPHILS ABSOLUTE AUTO 0.01 K/mm3 (0.00-0.23); BASOPHILS PERCENT AUTO 0 % (0-2); EOSINOPHILS ABSOLUTE AUTO 0.13 K/mm3 (0.00-0.68); EOSINOPHILS PERCENT AUTO 1 % (0-6); Hematocrit 23.5 % (33.0-51.0); Hemoglobin 7.3 g/dL (11.5-16.0); IMMATURE GRAN ABSOLUTE AUTO 0.07 K/mm3 (0.00-0.10); IMMATURE GRAN PERCENT AUTO 1 % (0-1); LYMPHOCYTES ABSOLUTE AUTO 1.02 K/mm3 (0.84-5.20); LYMPHOCYTES PERCENT AUTO 11 % (21-46); MONOCYTES ABSOLUTE AUTO 0.51 K/mm3 (0.16-1.47); MONOCYTES PERCENT AUTO 5 % (4-13); Mean Corpuscular HGB 34.4 pg (26.0-34.0); Mean Corpuscular HGB Conc 31.1 g/dL (31.5-36.5); Mean Corpuscular Volume 111 fL (80-100); Mean Platelet Volume 11.7 fL (9.1-12.4); NEUTROPHILS ABSOLUTE AUTO 7.85 K/mm3 (1.96-9.15); NEUTROPHILS PERCENT AUTO 82 % (41-73); NRBC ABSOLUTE 0.03 K/mm3 (0.00-0.02); NRBC Auto 0.3 /100 WBC (0.0-0.2); Platelet Count 186 K/mm3 (150-400); RDW Standard Deviation 68.2 fL (35.1-46.3); Red Blood Cell Count 2.12 M/mm3 (3.80-5.20); White Blood Cell Count 9.59 K/mm3 (4.00-11.30)
--- NOTE | 2020-07-04 06:22 | NUR ---
UPDATE PT CONTINUES TO C/O SEVERE PAIN; PT STATES ABDOMEN IS PAINFUL; TUBE FEED HAS BEEN STOPPED FOR ENTIRE SHIFT; DILAUDID ADMINISTERED PER EMAR; HEP GTT AT 25 U/KG/HR
[2020-07-04 06:26] LABS: Alanine Aminotransfer (ALT/SGP 49 U/L (12-78); Albumin, Blood 1.7 g/dL (3.4-5.0); Albumin/Globulin Ratio 0.5 (0.8-1.8); Alk Phos 80 U/L (50-136); Anion Gap 7 mmol/L (6-16); Aspartate Aminotrans (AST/SGOT 34 U/L (12-37); Bilirubin, Total 0.7 mg/dL (0.1-1.0); Blood Urea Nitrogen 18 mg/dL (8-24); Bun/Creatinine Ratio 40.6 (12.0-20.0); CO2, Blood 28 mmol/L (21-32); Calcium, Blood 8.3 mg/dL (8.5-10.1); Chloride, Blood 105 mmol/L (98-108); Creatinine, Blood 0.44 mg/dL (0.40-1.00); Globulin, Blood 3.5 g/dL (2.2-4.0); Glomerular Filtration Rate >60 (60-); Glucose, Blood 97 mg/dL (70-99); Magnesium, Blood 2.2 mg/dL (1.6-2.4); Potassium, Blood 3.8 mmol/L (3.5-5.5); Sodium, Blood 140 mmol/L (136-145); Total Protein, Blood 5.2 g/dL (6.4-8.2); Triglycerides 130 mg/dL (30-160)
--- NOTE | 2020-07-04 08:40 | NUR ---
DISCUSSED POC WITH DR. BYNUM. SHE STATES THAT SHE SAW PATIENT THIS AM. NOTIFIED HER PATIENT REPORTED ABDOMINAL PAIN FREQUENTLY THROUGHOUT THE NIGHT. THE TUBE FEEDING HAD NOT BEEN RESTARTED LAST NIGHT D/T ABDOMINAL PAIN. DR. BYNUM STATED TO KEEP TUBE FEEDING OFF AT THIS TIME. SHE WILL ORDER IMAGING TO VIEW ABDOMEN. ALSO TALKED TO HER ABOUT PTT, SHE STATES THAT DR. NAVARRO PERFORMED REVASCULARIZATION AND THAT HE IS NOT AVAILABLE THIS WEEKENED, CONTINUE WITH HEPARIN DRIP AT THIS TIME.
--- NOTE | 2020-07-04 09:50 | NUR ---
DR. BYNUM AT BEDSIDE. DISCUSSED POC. PLAN IS TO DC HEPARIN DRIP AND START ELIQUIS. STATES SHE ORDERED IMAGING AND ADDITIONAL MEDICATIONS. OK TO GIVE MEDS PER TUBE AT THIS TIME.
--- NOTE | 2020-07-04 14:25 | NUR ---
DNR BAND PLACED TO PATIENT'S LEFT WRIST, VERIFIED WITH NELSON BARNES RN.
--- NOTE | 2020-07-04 14:28 | NUR ---
PATIENT DOWN TO CT VIA GURNEY. MEDICATED WITH DILAUDID AND ATIVAN PRIOR TO TRANSFER. ON O2 AT 8L.
--- NOTE | 2020-07-04 16:53 | NUR ---
CALLED DR. BYNUM. NOTIFIED HER PATIENT ABD CT RESULTS CAME BACK. SHE SAID SHE ALREADY SAW THEM AND THAT SHE TALKED WITH DR. CROOKS WHO WOULD BE REVIEWING THE PATIENT'S CASE. DR. BYNUM ORDERED TO HOLD TUBE FEEDINGS FOR NOW. CONTINUE WITH MEDS PER TUBE. PATIENT NOT ON FLUIDS. SHE SAID SHE WOULD REVIEW MEDS/FLUIDS AND ADJUST.
--- NOTE | 2020-07-04 18:00 | NUR ---
TELETE[facility] CALLED, PATIENT'S HEART RATE SUSTAINING IN THE 120'S-130'S. AT THIS TIME, PATIENT IN PAIN AND HAS ANXIETY. HER DAUGHTER JUST LEFT. WILL ADMINISTER ATIVAN TO SEE IF THTA HELPS WITH ANXIETY AND DECREASES HEART RATE.
--- NOTE | 2020-07-04 19:30 | NUR ---
SHIFT SUMMARY: PATIENT ORIENTED TO NAME, BIRTHDAY, AND FAMILY ONLY. SHE IS ABLE TO FOLLOW INSTRUCTIONS AT TIMES. HOLDS CONVERSATION AT TIMES, AT OTHER TIMES SHE HAS NONSENSICAL SPEECH. SHE HAS SPASTIC ARM MOVEMENTS AT TIMES. MEDICATED FOR PAIN IN ABDOMEN AND LOW RIBS WITH DILAUDID. HAS ANXIETY AT TIMES, ATIVAN GIVEN. ON 8L O2 VIA HIGH FLOW NC. THIS EVENING, SHE STARTED COUGHING UP SMALL AMTS OF THICK YELLOW SPUTUM AND HAD WHEEZING IN THE UPPER LOBES, BREATHING TREATMENT GIVEN. THIS EVENING, HER HEART RATE WAS UP TO THE 120'S-130'S BUT SHE WAS IN PAIN AND HAD ANXIETY, HEART RATE AT THIS TIME IS IN THE LOW 100'S AND PATIENT IS RESTING. TUBE FEEDINGS HELD TODAY, MEDICATIONS GIVEN TODAY PER DR. BYNUM'S ORDERS. ABD CT COMPLETED. DR. BYNUM ORDERED TO CONTINUE TO HOLD TUBE FEEDINGS, OK TO GIVE MEDS THROUGH TUBE. TURNED Q2H. PICTURES TAKEN OF WOUNDS TO COCCYX AND BUTTOCKS. WOUNDS TO COCCYX AND BUTTOCKS CLEANSED WITH SKINTEGRITY WOUND CLEANSER AND COVERED WITH ALLEVYN DRESSING. PICC DRESING CHANGED. REPORT GIVEN TO ONCOMING RN.
[2020-07-05 04:46] LABS: Mean Corpuscular HGB Conc 30.4 g/dL (31.5-36.5); Mean Corpuscular Volume 112 fL (80-100); Mean Platelet Volume 11.9 fL (9.1-12.4); NRBC ABSOLUTE 0.03 K/mm3 (0.00-0.02); NRBC Auto 0.3 /100 WBC (0.0-0.2); Platelet Count 201 K/mm3 (150-400); RDW Coefficient Variation 17.5 % (11.7-14.2); RDW Standard Deviation 69.2 fL (35.1-46.3); Red Blood Cell Count 2.06 M/mm3 (3.80-5.20); White Blood Cell Count 9.33 K/mm3 (4.00-11.30)
[2020-07-05 05:15] LABS: Alanine Aminotransfer (ALT/SGP 56 U/L (12-78); Albumin, Blood 2.3 g/dL (3.4-5.0); Albumin/Globulin Ratio 0.7 (0.8-1.8); Alk Phos 87 U/L (50-136); Anion Gap 6 mmol/L (6-16); Aspartate Aminotrans (AST/SGOT 45 U/L (12-37); Bilirubin, Total 0.6 mg/dL (0.1-1.0); Blood Urea Nitrogen 14 mg/dL (8-24); CO2, Blood 29 mmol/L (21-32); Calcium, Blood 8.5 mg/dL (8.5-10.1); Chloride, Blood 106 mmol/L (98-108); Creatinine, Blood 0.48 mg/dL (0.40-1.00); Globulin, Blood 3.1 g/dL (2.2-4.0); Glomerular Filtration Rate >60 (60-); Glucose, Blood 121 mg/dL (70-99); Potassium, Blood 3.3 mmol/L (3.5-5.5); Sodium, Blood 141 mmol/L (136-145); Total Protein, Blood 5.4 g/dL (6.4-8.2)
--- NOTE | 2020-07-05 06:41 | NUR ---
UPDATE: MORNING LABS SHOW HGB-7.0 AND POTASSIUM-3.3. DR. RILEY NOTIFIED VIA TELEPHONE. ORDERS TO CONTINUE TO MONITOR HGB AND ADD KCL 40 MEQ IV ONE TIME.
--- NOTE | 2020-07-05 06:48 | NUR ---
SHIFT SUMMARY: MORENA IS ALERT AND ORIENTED TO HERSELF AND BIRTHDAY. ABLE TO ANSWER MOST CARE QUESTIONS ISMAEL. VSS, TELE SHOWING SINUS TACH WITH HR'S IN THE 100'S-110'S. ONE EPISOPDE OF HR REACHING UP TO 130'S-140'S WHEN PATIENT WAS COMPLAINING OF PAIN AND RESTLESS IN BED. PT COMPLAINED OF ABDOMEN AND BACK PAIN THROUGHOUT THE NIGHT. PAIN WAS MANAGED WITH DILAUDID PER EMAR WITH GOOD RELIEF. ON 8L O2 HIGH FLOW NASAL CANNULA MAINTAINING <92%. Q2H TURNS, Q4H ORAL CARE. SMITH PATENT AND DRAINING CLEAR YELLOW URINE TO GRAVITY. CATHETER CARE PROVIDED. PATIENT SLEPT MOST OF NIGHT WITH A FEW EPISODES OF PAIN/ANXIETY. D5W1/2NS INFUSING @75ML WELL KCL MEQ INFUSING AT 50ML/HR, SEE EMAR. PICC FLUSHING WELL AND CAPS CHANGED THIS SHIFT. BED WAS KEPT LOCKED, IN LOW POSITION AND CALL LIGHT WAS IN REACH THROUGHOUT SHIFT.
--- NOTE | 2020-07-05 08:24 | NUR ---
PROVIDER COMMUNICATION DR. CROOKS TO BEDSIDE TO ASSESS JG TUBE. PER DR. CROOKS, OK TO GIVE FOOD VIA J-TUBE BUT START SLOW AND CONTINUE TOLERATED. PT TACHYPNEIC, TACHYCARDIC, ELEVATED BP. KNOWS NAME BUT OTHERWISE NOT ORIENTED. QUIETLY STATES, "HELP ME," INTERMITTENTLY. ASKED PATIENT IF SHE IS IN PAIN AND PT STATES, "NO." PT RESTLESS, ARMS FLAILING AROUND IN BED INTERMITTENTLY. PT CONTINUES TO BE CYANOTIC, BUT APPEARS TO BE MORE SO THAN PREVIOUS ENCOUNTERS WITH PATIENT. CALL PLACED TO DR. PETERS REGARDING THESE FINDINGS. NO NEW ORDERS AT THIS TIME, BUT DR. PETERS STATES SHE WILL REVIEW THE PATIENTS CHART, TALK TO PALLIATIVE CARE AND PLACE ORDERS APPROPRIATE.
[2020-07-05 10:16] LABS: pH Blood Venous 7.36 (7.34-7.37)
[2020-07-05 10:18] LABS: Bicarbonate Venous 22.9 mmol/L (24.0-30.0); PCO2 Venous 43.4 mmHg (38-42); PO2 Venous 26.6 mmHg (38-42)
--- NOTE | 2020-07-05 11:00 | NUR ---
FAMILY UPDATE PT'S DAUGHTER, MATTHEW, CALLED UNIT REQUESTING UPDATE ON MOTHER. INFORMED HER OF HER INCREASED RESPIRATIONS, INCREASED HEART RATE, APPARENT DISCOMFORT/HALLUCINATIONS, FLAILING OF ARMS, NONVERBAL SIGNS OF PAIN AND INCREASED CYANOSIS. MATTHEW TEARFUL AND STATES, "OH, MOM. I JUST WANT HER TO BE COMFORTABLE. YESTERDAY SHE CRIED WHEN I LEFT AND ASKED ME TO TAKE HER HOME. CAN I BRING HER HOME AND KEEP HER COMFORTABLE?" ENCOURAGED DAUGHTER TO HAVE CONVERSATION WITH PT'S HE IS THE PRIMARY DECISION MAKER FOR THE PATIENT. MATTHEW EXPLAINED SHE WAS HEADED OVER TO HER DAD'S HOUSE TO HAVE A CONVERSATION WITH HIM ABOUT BRINGING HER MOM HOME.
--- NOTE | 2020-07-05 12:20 | NUR ---
TUBE FEED SPOKE WITH RICARDA IN DIETARY REGARDING ORDER FROM DR. CROOKS FOR TUBE FEEDING. STATES THE ORDER WILL BE FOR JEVITY 1.2 START AT 15 ML/HR BUT THAT SHE WILL PLACE OFFICIAL ORDERS.
--- NOTE | 2020-07-05 16:27 | NUR ---
CONVERSATION WITH PT'S TO BEDSIDE DURING VISITING HOURS. APPROX 30 MINUTES SPENT WITH . PROVIDED HIM WITH UPDATE ON PATIENT STATUS. EXPLAINED TO HIM CONCERNS REGARDING RESPIRATORY RATE AND DEPTH, HEART RATE, AND RESPONSIVENESS. OFFERED SUPPORT TO . ANSWERED MANY QUESTIONS. STATES, "MY DAUGHTER AND I KNOW WHERE THIS IS PROBABLY GOING. WE ARE JUST WORKING ON A DECISION. WE WILL PROBABLY TRY AND TAKE HER HOME." EXPRESSED THAT HIS DAUGHTER IS IN COMMUNICATION WITH HOSPICE AND THAT THEY WANT TO CALL THEIR DOCTOR TOMORROW MORNING AND TOUCH BASES WITH HIM. INFORMED HIM OF THE RESOURCES HERE INCLUDING CARE MANAGEMENT AND PALLIATIVE CARE AND PT VERBALIZED UNDERSTANDING OF THIS. EXPLAINED TO HIM AGAIN THE SUPPORTIVE POSITION OF COMFORT MEASURES WHICH PLACES THE PRIORITY ON COMFORT AND MANAGING SYMPTOMS COLLABORATIVELY BETWEEN NURSE, DOCTOR, PATIENT AND FAMILY. VERBALIZED UNDERSTANDING, FOLLOWING UP WITH, "WE JUST WANT TO MAKE SURE SHE HAS THE BEST CHANCE SHE CAN HAVE." CONTINUE WITH CURRENT PLAN AT THIS TIME. EXPRESSES GRATITUDE, DENIES FURTHER QUESTIONS. DURING THIS TIME, PT BECOMES RESTLESS. OFFERED TO TO HAVE CONVERSATION ELSEWHERE FOR PATIENT COMFORT AND PT NODS HER HEAD NO. WHEN ASKED IF SHE PREFERS WE STAY IN THE ROOM FOR CONVERSATION SHE NODS HER HEAD YES. WHILE DISCUSSING COMFORT MEASURES AND PRIORITIES OF CARE PT IS NODDING HER HEAD OVER AND OVER AGAIN IN AGREEANCE. HOWEVER, PT DOES NOT OPEN HER EYES OR SAY ONE WORD OTHER THAN MOUTH "THANK YOU" AT THE END OF THE CONVERSATION WITH THE TWO OF THEM.
--- NOTE | 2020-07-05 17:27 | NUR ---
PROVIDER COMMUNICATION SPOKE WITH DR. PETERS REGARDING 150 ML OUT OF SMITH CATHETER VERSES IV AND TUBE FEED INTAKE.
--- NOTE | 2020-07-05 17:55 | NUR ---
SUMMARY SEE PREVIOUS NOTES AND ASSESSMENTS FOR UPDATES THROUGHOUT THE DAY. PT CONTINUES TO BE LESS AND LESS RESPONSIVE, WITH AN ELEVATED HEART RATE AND ELEVATED RESPIRATORY RATE. MEDICATED ONCE FOR PAIN, CLOSELY MONITORING TO NOT OVERSEDATE SHE IS ALREADY MINIMALLY RESPONSIVE AT THIS TIME. DISCUSSED THIS BALANCE WITH AND HE IS AGREEABLE. HE SAYS HE THINKS SHE LOOKS LESS DISTRESSED THAN PREVIOUS DAYS. EDUCATED REGARDING NEURO STATUS. BP CONTINUES TO BE STABLE. 02 REQUIREMENTS CONSISTENT AT 8 LPM THOR DAY. ARRIVED EARLIER THIS AFTERNOON BUT HAS LEFT AT THIS TIME FOR THE NIGHT.
--- NOTE | 2020-07-05 20:07 | NUR ---
CARE ASSUMPTION: UPON ASSUMPTION OF CARE PATIENT ABLE TO RESPOND TO NAME AND SIMPLE CARE QUESTIONS SHAKING HEAD YES OR NO. RESTING IN BED, WITH CALL LIGHT IN REACH. RESPIRATIONS AT 40 BREATHS/MIN. ON 7 L OF HIGH FLOW O2 VIA NASAL CANNULA, MAINTAINING >92%. HR IN THE 120'S. IV D5W1/2NS INFUSING AT @75ML, AND TUBE FEED RUNNING THROUGH J TUBE @ 15 ML/H. PICC AND GJ TUBE DRESSING DRY, CLEAN AND INTACT. SKIN COLORING IS CYANOTIC. SMITH CATH DRAINING CLEAR YELLOW URINE TO GRAVITY. 2000 VITALS STABLE. ORAL CARE REFUSAL, PATIENT ONLY WANTING MOSTURIZER ON LIPS.
--- NOTE | 2020-07-05 20:33 | NUR ---
UPDATE NS RUNNING AT 15ML/H TKO THROUGH PICC, STOPPED DUE TO PATIENT RECVIEVING D5W1/2NS AT 75 ML/HR. PUMP CLEARED AT 2019 WITH 44ML
--- NOTE | 2020-07-05 20:42 | NUR ---
PAIN/TUBE FEED UPDATE ASKED PATIENT IF IN ANY PAIN, PATIENT OPENED EYES, VERBALIZED "NO" AND SHOOK HEAD NO. RESTING IN BED, WILL CONTINUE TO MONITOR. TUBE FEEDING INCREASED TO 25ML/HR PER ORDER. HOB ELEVATED TO 30 DEGREES. BLOOD SUGAR CHECKED AT THIS TIME - 180. WILL CONTINUE TO MONITOR TOLERANCE OF TUBE FEED AND BLOOD SUGARS.
--- NOTE | 2020-07-05 22:37 | NUR ---
PAIN UPDATE ASKED PATIENT IF IN ANY PAIN, PATIENT STATED "YES, MY LOWER BACK" AND SHOOK HEAD YES. WHEN ASKED RATING, PATIENT STATED "OUT OF 10". PROVIDED PATIENT WITH 0.5MG DILAUDID PER EMAR. PATIENTS RESPIRATIONS AND HR REMAIN STABLE AFTER ADMINISTRATION. WILL CONTINUE TO MONITOR VITALS AND PAIN.
--- NOTE | 2020-07-06 00:40 | NUR ---
UPDATE PATIENT IS CURRENTLY RESTING AND APPEARS TO BE ASLEEP. TOLERATING TUBE FEEDING, HOB REMAINS AT 30 DEGREES. TURNING Q2. REFUSING SUCTION/SWAB WITH ORAL CARE, SHAKING HEAD NO AND STATING "I CAN'T", APPLYING MOISTURIZER Q4/PRN. HR REMAINING IN 120'S AND 02 CURRENTLY AT 92% ON 7L. RESPIRATIONS CONTINUE TO BE SHALLOW AND TACHYPNEA. NO MOTTLING NOTED, SKIN REMAINS CYANOTIC. WILL CONTINUE TO MONITOR.
--- NOTE | 2020-07-06 01:20 | NUR ---
PAIN UPDATE WHEN WALKING IN ROOM TO CHECK ON PATIENT, PATIENT OPENED EYES. WHEN ASKED HOW THEY WERE DOING PATIENT SPOKE VERY SOFTLY AND MOUTHED "NOT DOING WELL". WHEN QUESTIONED ABOUT PAIN, PT SHOOK HEAD YES WITH EYES OPEN AND STATED "LOWER BACK". DUE TO VITALS BEING STABLE AND PATIENT VERBALIZING PAIN, 0.5MG DILAUDID WAS GIVEN PER EMAR. REMAINING AT BEDSIDE TO MONITOR VITALS AND PAIN. CURRENTLY HR-121, 02 SAT 90% ON 7L NC, AND RR-36.
[2020-07-06 04:55] LABS: Anion Gap 5 mmol/L (6-16); Blood Urea Nitrogen 12 mg/dL (8-24); CO2, Blood 27 mmol/L (21-32); Calcium, Blood 8.3 mg/dL (8.5-10.1); Chloride, Blood 106 mmol/L (98-108); Glomerular Filtration Rate >60 (60-); Glucose, Blood 170 mg/dL (70-99); Magnesium, Blood 2.1 mg/dL (1.6-2.4); Phosphorus, Blood 2.3 mg/dL (2.5-4.9); Sodium, Blood 138 mmol/L (136-145)
--- NOTE | 2020-07-06 05:10 | NUR ---
TUBE FEED UPDATE PATIENT TOLERATING TUBE FEEDING WELL, HOB REMAINING AT 30 DEGREES. FEED THROUGH J TUBE INCREASED TO 35ML/HR AT THIS TIME PER ORDER. PUMP CLEARED AT WITH A TOTAL OF 227ML OF FEED AND 275ML OF FLUSH RECORDED. WILL CONTINUE TO MONITOR TOLERANCE.
[2020-07-06 06:38] LABS: BASOPHILS ABSOLUTE AUTO 0.01 K/mm3 (0.00-0.23); BASOPHILS PERCENT AUTO 0 % (0-2); EOSINOPHILS ABSOLUTE AUTO 0.03 K/mm3 (0.00-0.68); EOSINOPHILS PERCENT AUTO 0 % (0-6); Hematocrit 22.9 % (33.0-51.0); Hemoglobin 6.8 g/dL (11.5-16.0); IMMATURE GRAN ABSOLUTE AUTO 0.17 K/mm3 (0.00-0.10); IMMATURE GRAN PERCENT AUTO 1 % (0-1); LYMPHOCYTES ABSOLUTE AUTO 1.18 K/mm3 (0.84-5.20); LYMPHOCYTES PERCENT AUTO 8 % (21-46); MONOCYTES ABSOLUTE AUTO 0.91 K/mm3 (0.16-1.47); MONOCYTES PERCENT AUTO 6 % (4-13); Mean Corpuscular HGB 34.3 pg (26.0-34.0); Mean Corpuscular HGB Conc 29.7 g/dL (31.5-36.5); Mean Corpuscular Volume 116 fL (80-100); Mean Platelet Volume 12.3 fL (9.1-12.4); NEUTROPHILS PERCENT AUTO 85 % (41-73); NRBC ABSOLUTE 0.08 K/mm3 (0.00-0.02); NRBC Auto 0.5 /100 WBC (0.0-0.2); Platelet Count 198 K/mm3 (150-400); RDW Coefficient Variation 18.3 % (11.7-14.2); RDW Standard Deviation 75.5 fL (35.1-46.3); Red Blood Cell Count 1.98 M/mm3 (3.80-5.20)
--- NOTE | 2020-07-06 07:05 | NUR ---
UPDATE DR RILEY NOTIFIED OF PATIENT'S HGB RESULTS THIS MORNING. NO ORDERS RECIEVED AT THIS TIME.
--- NOTE | 2020-07-06 07:24 | NUR ---
SHIFT SUMMARY PT WAS ALERT TO SELF THROUGHOUT SHIFT OPENING EYES TO SOUND AND TOUCH. RESPONDING WITH YES AND NO WHILE SHAKING HEAD AND SPEAKING SOFTLY. HR'S REMAINED IN 120'S AND SINUS TACH WITH OCCASIONAL RUNS OF SVT. PT REMAINED ON 7L O2 HIGH FLOW NC. TOLERATED TUBE FEEDING WELL WITH HOB AT 30 DEGREES AND Q6 BLOOD SUGARS. RESPIRATIONS REMAINED TACHY AND SHALLOW. SMITH DRAINING TO GRAVITY WITH ONLY 175ML OUT DURING SHIFT. LABS THIS AM SHOWED DECREASED HGB, DR. RILEY AWARE. PAIN MANAGED THIS SHIFT WITH 0.5MG DILAUDID PER EMAR, SEE PAIN MANAGEMENT UPDATES IN NOTES. PATIENT HAD 2 SMALL LIQUID BOWEL MOVEMENTS DURING NIGHT. COCCYX WOUND CLEASNED AND DRESSING CHANGED WITH BOWEL MOVEMENTS.
--- NOTE | 2020-07-06 08:00 | NUR ---
pt laying in bed with eyes closed, opens eyes when spoke to, she is very fail, unable to cooperate with assessment, lungs are dim with exp wheezing t/o, resp even rapid, on high flow cannula at 7 liters o2, in the 30's, no cough noted, hrr, tele in place running st in the 120's per monitor, see strip, picc line to los, site is clear and patent, btx4, abd flat soft, peg tube in place running feed at 35mls/hr, pt is npo, [place]ijer[place] cath draining yellow urine, skin has wound to coccyx that has a dressing in place, not moving herself, she is total care, oral care done, pt sitting up at 40degrees for tube feeds, call light in reach.
--- NOTE | 2020-07-06 15:05 | NUR ---
pt had liquid stool, she was changed and turned with new attends. call light in reach.
--- NOTE | 2020-07-06 16:20 | NUR ---
SPOUCE IN TO SIT WITH PT UNTIL TRANSPORT ARRIVES AT 1700. INFORMED HIM OF THIS. PICCLINE HAS BEEN REMOVED INTACT, [facility]IN HAS HARD COPIES OF MEDICINES FOR HER. SHEET TURNER WENT OVER MEDICATIONS WITH THE DAUGHTER. CALL LIGHT IN REACH.
--- NOTE | 2020-07-06 17:28 | NUR ---
Spiritual care note: I met with spouse, Jeff at bedside. He is anxious to get Aimee home. Otherwise, Jeff is very quiet and withdrawn. He did allow a prayer. Aimee appears to be nearing end-of-life. She slept throughout visit.
--- NOTE | 2020-07-06 17:38 | NUR ---
PT LEFT FOR HOME VIA AMBULANCE. IN ATTENDENCE. HE HAS ALL BELONGINGS.
== END 2020-07-06 17:39 | disposition hospice, home (50) | DRG 391 ==
LOC: ER 15:47 → MEDS 15:48 → ICUE 06-26 15:29 → PCU 06-27 17:27
PROVIDERS: Emergency Medicine; Family Medicine; Internal Medicine; Nurse Practitioner Acute Care; Radiology Diagnostic Radiology; Student in an Organized Health Care Education/Training Program; Surgery; ADMIT Family Medicine
PROC: 06H03DZ Insertion of Intraluminal Device into Inferior Vena Cava, Percutaneous Approach (ICD-10-PCS; 2020-06-24)
PROC: 0DD38ZX Extraction of Lower Esophagus, Via Natural or Artificial Opening Endoscopic, Diagnostic (ICD-10-PCS; 2020-06-24)
PROC: 0DD78ZX Extraction of Stomach, Pylorus, Via Natural or Artificial Opening Endoscopic, Diagnostic (ICD-10-PCS; principal; 2020-06-24 17:00)
PROC: 0DH63UZ Insertion of Feeding Device into Stomach, Percutaneous Approach (ICD-10-PCS; 2020-06-26)
PROC: 3E0G76Z Introduction of Nutritional Substance into Upper GI, Via Natural or Artificial Opening (ICD-10-PCS; 2020-06-26)
PROC: B404YZZ Plain Radiography of Superior Mesenteric Artery using Other Contrast (ICD-10-PCS; 2020-06-26)
PROC: 30233N1 Transfusion of Nonautologous Red Blood Cells into Peripheral Vein, Percutaneous Approach (ICD-10-PCS; 2020-06-26)
DX: R13.10 Dysphagia, unspecified (principal); E43 Unspecified severe protein-calorie malnutrition; J69.0 Pneumonitis due to inhalation of food and vomit; K55.069 Acute infarction of intestine, part and extent unspecified; A04.8 Other specified bacterial intestinal infections; K55.9 Vascular disorder of intestine, unspecified; N39.0 Urinary tract infection, site not specified; I82.432 Acute embolism and thrombosis of left popliteal vein; I82.452 Acute embolism and thrombosis of left peroneal vein; I82.442 Acute embolism and thrombosis of left tibial vein; K29.70 Gastritis, unspecified, without bleeding; Z66 Do not resuscitate; Z51.5 Encounter for palliative care; Z20.828 Contact with and (suspected) exposure to other viral communicable diseases; D53.9 Nutritional anemia, unspecified; E78.00 Pure hypercholesterolemia, unspecified; E83.39 Other disorders of phosphorus metabolism; E86.0 Dehydration; E87.6 Hypokalemia; E88.09 Other disorders of plasma-protein metabolism, not elsewhere classified; F17.210 Nicotine dependence, cigarettes, uncomplicated; F41.9 Anxiety disorder, unspecified; G47.33 Obstructive sleep apnea (adult) (pediatric); G89.29 Other chronic pain; I10 Essential (primary) hypertension; I73.9 Peripheral vascular disease, unspecified; J44.9 Chronic obstructive pulmonary disease, unspecified; K21.9 Gastro-esophageal reflux disease without esophagitis; Z85.3 Personal history of malignant neoplasm of breast; L89.150 Pressure ulcer of sacral region, unstageable; K44.9 Diaphragmatic hernia without obstruction or gangrene; M32.0 Drug-induced systemic lupus erythematosus; R62.7 Adult failure to thrive; B96.20 Unspecified Escherichia coli [E. coli] as the cause of diseases classified elsewhere
CPT/HCPCS: 0241U; 36415; 36430; 36569; 37191; 37236; 49441; 51702; 70450; 71045; 74177; 74230; 75726; 76937; 80048; 80053; 80069; 81001; 82607; 82728; 82746; 82803; 82947; 83540; 83550; 83605; 83735; 84100; 84443; 84478; 85014; 85018; 85025; 85027; 85730; 86850; 86900; 86901; 86923; 87040; 87077; 87086; 87186; 88305; 88342; 92526; 92611; 93005; 93010; 93306; 93970; 94760; 94761; 94762; 96361; 96365; 96366; 96372; 96375; 96376; 97110; 97162; 97165; 99152; 99153; 99285-25; A9270-GY; C1751; C1769; C1876; C1880; C1887; C1894; C9113; G0378; J0696; J1170; J1200; J1644; J1885; J1940; J1956; J2060; J2250; J2370; J2405; J2550; J2704; J3010; J3480; J7030; J7040; J7042; J7050; J7060; P9016; P9046; Q9967